=== PATIENT | female | born 1940 | race Caucasian/White ===

== ENCOUNTER 2022-02-03 11:30 | Outpatient (RCR) | payer OTHER, SELFPAY ==
[2022-01-20 14:14] VITALS: BP 145/78; PULSE 90; RESP 20; TEMP 36.4; BMI 25.9
[2022-01-20 14:31] VITALS: BMI 25.9
--- NOTE | 2022-01-20 14:35 | HP.PCM_ITS ---
History of Present Illness Date of Service: 01/20/22 Chief Complaint: Left lateral leg wound. History of Wound: Patient bumped her left lateral leg 3 weeks ago on the kneeler at [facility]. She has been placing antibiotic ointment on it. It was causing her so much pain that she ended up going to the ED for evaluation. She was started on Bactrim and clindamycin. She followed up with [place] [facility]. Her biggest concern is she had her left knee replaced 2 years ago. She does not want her knee replacement to get infected. Her wound care has been Santyl covered by Emi. We will stop the Santyl and place Emi covered with gauze. Use a double layer Tubigrip for compression. Today she denies any fever, nausea or vomiting. She states she has a good appetite. Progress of Wound: Left lateral leg ulcer with increased slough. Extremely tender to light palpation. [facility] Medical History (Updated 01/24/22 @ 16:27 by Annie Cervantes WOOD CARVING MACHINE OPERATOR, WOOD CARVING MACHINE OPERATOR-C) Hypothyroidism Surgical History (Updated 01/24/22 @ 16:27 by Annie Cervantes WOOD CARVING MACHINE OPERATOR, WOOD CARVING MACHINE OPERATOR-C) H/O hernia repair H/O: hysterectomy Social History Smoking Status: Never smoker ROS Constitutional Constitutional: Reports systems reviewed and no addt'l complaints, except as documented ENT HEENT: Reports systems reviewed and no addt'l complaints, except as documented Cardiovascular Cardiovascular: Reports none Respiratory/Chest Respiratory/Chest: Reports none Gastrointestinal Gastrointestinal: Reports none Musculoskeletal Musculoskeletal: Reports none Integumentary Integumentary: Reports as per HPI and wounds Psychiatric Psychiatric: Reports none Vital Signs Vital Signs Vital Signs: 01/20/22 14:14 Temperature 97.6 F L Temperature Source Temporal Pulse Rate 90 Respiratory Rate 20 H Blood Pressure 145/78 H Blood Pressure Mean 100 Blood Pressure Source Monitor Weight Weight: 165 lb 12.203 oz Body Mass Index (BMI) 25.9 Physical Exam Const alert, oriented x3 and no apparent distress General Appearance: cooperative HEENT normocephalic Eyes PERRL Resp normal respiratory effort and normal air movement Cardio regular rate, regular rhythm, S1 normal heart sound and S2 normal heart sound GI normal to inspection, nondistended, normoactive bowel sounds, soft to palpation and non-tender Extremity no clubbing, cyanosis or edema and no calf tenderness Peripheral Pulses: Yes pulses 2+ throughout Skin Skin Narrative: Left leg ulcer is very sensitive to light palpation. Is open with increased nonviable tissue. Neuro oriented x3 Psych mental status grossly normal Debridement Note Debridement Note Wound debrided: Leg wound Laterality: Left Type of Debridement: Excisional debridement Anesthesia Used: 4% Lidocaine Solution and - (1.5 cc of 1% lidocaine with epinephrine) Depth: Down to and including healthy tissue and in the subcutaneous layer Percentage of wound debrided: 100 Instrument Used: 5mm curette Tissue Removed: Subcutaneous tissue and slough Severity: Fat Layer Exposed Amount of bleeding with debridement: Mild Bleeding Controlled with: Pressure and Compression and gauze Patient tolerated procedure: Patient tolerated procedure well Debridement Free Text: Patient insisted on being injected with lidocaine before being evaluated and debrided. She did tolerate debridement well. Post-Debridement Measurements and Additional Note: Post-Debridement Measurements/Treatment - Nurse 1 - General Ulcer Assessment Start: 01/20/22 14:14 Freq: Status: Active Protocol: .SHAMAR Activity Type Activity Date Activity User E-Sign Co-Sign Detail Recorded Client Recorded Date Recorded By Document 01/20/22 14:14 DL [id number] 01/20/22 14:28 DL Document 01/20/22 14:31 BM [id number] 01/20/22 14:33 [facility] 01/20/22 01/20/22 14:14 14:31 - Today's Visit Information Type of service Initial Visit Arrival Mode Ambulatory Transfer Assistance None Patient Identification Verified (Name & Yes ) Patient Requires Transmission-Based No Precautions Height and Weight Height 5 ft 7 in Weight 165 lb 12.203 oz Weight in Pounds 165.8 lbs Body Mass Index (BMI) 25.9 25.9 BMI Classification Overweight Overweight BSA - Bijal 1.87 Vital Signs Temperature (97.8 F-99.1 F) 97.6 F L Temperature Source Temporal Pulse Rate (60-100) 90 Pulse Location Monitor Respiratory Rate (12-18) 20 H Respiratory rate source Observation Blood Pressure (90/60-120/80) 145/78 H Blood Pressure Mean 100 Source Monitor History Since Last Visit- (Skip if this is Patient's initial visit) Left Footwear Regular Shoe Right Footwear Regular Shoe Pain Scale: 0-10 Numeric Is Patient Pain Free? No Yes Ulcer -Description Throbbing -Intensity 4 -Alleviating Factors/Interventions Inactivity/ Resting Lower Extremity Assessment/ Foot Assessment/ Toe Nail Assessment Right -Posterior Tibial Palpable Yes -Posterior Tibial Doppler Multiphasic -Dorsalis Pedis Palpable Yes -Dorsalis Pedis Doppler Multiphasic -Extremity Color Pale -Hair Growth on Legs No -Hair Growth on Toes No -Temperature of Extremity Cool -Capillary Refill Less than 3 Seconds -Other Deformity No -Prior Foot Ulcer No -Charcot Joint No -Prior Amputation No -Thick No -Discolored No -Deformed No -Improper Length & Hygeine No Left -Posterior Tibial Palpable Yes -Posterior Tibial Doppler Multiphasic -Dorsalis Pedis Palpable Yes -Dorsalis Pedis Doppler Multiphasic -Extremity Color Pale -Hair Growth on Legs No -Hair Growth on Toes No -Temperature of Extremity Cool -Other Deformity No -Prior Foot Ulcer No -Charcot Joint No -Prior Amputation No -Thick No -Discolored No -Deformed No -Improper Length & Hygeine No Communication Assessment Preferred language [place] Able to Read Yes Able to Write Yes Right Hearing Abillity Normal Left Hearing Abillity Normal Visual Assistive Devices Glasses Teaching Assessment Preferences Verbal,Written, Demonstration Barriers to Learning None Readiness To Learn Good Willingness to Engage in Self Management Med Activies Readiness to Engage in Self Management Med Activities Anxiety Level Calm Cooperation Cooperative Perception Coherent Interest in Health Problem Asks Questions Education Importance Acknowledges Need Does Patient Smoke tobacco or other No substances Smoking Status Never smoker Is Patient Diabetic No Functional Assessment Recent Decline in Ability to Perform Denies Any Declines Culture/Confucianist/Public Administration Professor Cultural/Confucianist Needs that may affect No Treatment Plan Would you allow our hospital frame polisher to No meet you for the purpose of spiritual/ emotional support? Public Administration Professor to contact place of mandaeism No Teaching: Wound Center Dressing Your Wound -Person Taught Patient Discharge Instructions -Person Taught Patient Diagnostic Tests Ordered -Person Taught Patient *Welcome to the Wound Center -Person Taught Patient *Venous -Person Taught Patient WC - Nurse 1 - General Ulcer Measurement Start: 01/20/22 14:14 Freq: Status: Active Protocol: Activity Type Activity Date Activity User E-Sign Co-Sign Detail Recorded Client Recorded Date Recorded By Document 01/20/22 14:28 DL [id number] 01/20/22 14:29 DL 01/20/22 14:28 Wound Center Nurse 1 #1 L Lat LE -Current Size (cm) - Length 2 -Current Size (cm) - Width 1.4 -Current Size (cm) - Depth 0.1 -Total Square Cm 2.8 -Photo Taken Yes -Exudate Amt Medium -Exudate Type Serosanguineous -Wound Margin Distinct, Outline Attached -Granulation Amt Medium (34-66%) -Granulation Quality [place] -Necrosis Amt Medium (34-66%) -Necrotic Tissue Type Adherent Slough -Structure Exposed N/A -Texture (Janice-wound Skin Appearance) Scarring -Moisture (Janice-wound Skin Appearance) No Abnormality -Color (Janice-wound Skin Appearance) Hemosiderin Staining -Temperature (Janice-wound Skin No Abnormality Appearance) (Pt Warm) -Tenderness on Palpation (Janice-wound No Skin Appearance) -Ulcer Cleansing Soap and Water -Foul Odor after Cleansing No -Anesthetic Used 4% Lidocaine Solution Right Calf (cm) 34.5 Right Ankle (cm) 20.3 Left Calf (cm) 38.8 Left Ankle (cm) 20 Charges/Coding Visit Charges Office Visits / Consults: 33971 OV L3 New (25 modifier) Procedures Integumentary 111xxx-113xx: 75728 Latrice subq tissue 20 sq cm/< Assessment/Plan Assessment/Plan (1) Wound of left lower extremity: CODE(S): S81.802A - Unspecified open wound, left lower leg, initial encounter (2) Pain in wound: (3) History of total left knee replacement (TKR): CODE(S): Z96.652 - Presence of left artificial knee joint PLAN: Patient was seen and evaluated at the wound healing center today. She is experiencing quite a bit of pain with light palpation of her left leg wound. She was being seen at [facility]'s wound center. She had venous studies done. We will obtain the results of those. Will order arterial studies. Wound care - Stop the Santyl. Use moistened Emi covered with gauze daily. Will place a double layer tubigrip for compression. She is to complete the antibiotics of Bactrim that she was placed on. She completed the Clindamycin. Obtained a wound culture today. Depending on the results of the culture, it may necessitate the need to change her antibiotics. She is very active and wants to go to [facility]. Since she is having so much pain, I suggested she wait on kick boxing. It is ok to walk. She should avoid standing for long periods of time. Encouraged increase protein intake and increase Vitamin C intake to 1000mg/day to help with wound healing. Follow up in one week.
[2022-01-27 11:44] VITALS: BP 126/93; PULSE 89; RESP 20; TEMP 36.4; BMI 25.9
--- NOTE | 2022-01-27 13:19 | PN.PCM_ITS ---
History of Present Illness Date of Service: 01/27/22 Chief Complaint: Left lateral leg wound. History of Wound: Patient bumped her left lateral leg several weeks ago on the kneeler at [facility]. She has been placing antibiotic ointment on it. It was causing her so much pain that she ended up going to the ED for evaluation. She was started on Bactrim and clindamycin. She followed up with [place] [facility]. Her biggest concern is she had her left knee replaced 2 years ago. She does not want her knee replacement to get infected. Her wound care has been Santyl covered by Emi. We will stop the Santyl and place Emi covered with gauze. Use a double layer Tubigrip for compression. Wound care -Santyl nickel thickness covered with gauze daily. Wound culture from 01/20/2022 was negative for bacterial growth. Waiting for arterial studies. Today she denies any fever, nausea or vomiting. She states she has a good appetite. Progress of Wound: Left lateral leg wound with increased slough. Extremely painful to light palpation. Objective Data Objective Data Vital Signs: Vital Signs Temp Pulse Resp BP 97.5 F L 89 20 H 126/93 H 01/27/22 11:44 01/27/22 11:44 01/27/22 11:44 01/27/22 11:44 Weight: 165 lb 12.203 oz Body Mass Index (BMI) 25.9 Lab / Micro Data Micro: Microbiology 01/20/22 14:50 Wound - Leg, Left Gram Stain - Final 01/20/22 14:50 Wound - Leg, Left Wound Culture - Final No growth aerobically. 01/20/22 14:50 Wound - Leg, Left Anaerobic Culture - Final No growth in 5 days. Charges/Coding Procedures Integumentary 111xxx-113xx: 73638 Latrice subq tissue 20 sq cm/< Physical Exam Const alert and oriented x3 General Appearance: cooperative HEENT normocephalic Head and Scalp: atraumatic Resp normal respiratory effort Cardio regular rate Extremity normal capillary refill Extremity Narrative: +1 edema left lower leg Skin Wound Narrative: Left leg ulcer is very painful to palpation. There is nonviable tissue that is difficult to debride. Neuro CN's II-XII intact bilaterally Psych Appearance: grossly normal Debridement Note Debridement Note Wound debrided: Lateral leg wound Laterality: Left Type of Debridement: Excisional debridement Anesthesia Used: 5% Lidocaine Gel Depth: Down to and including healthy tissue and in the subcutaneous layer Percentage of wound debrided: 100 Instrument Used: 3mm curette Tissue Removed: Nonviable tissue and slough Severity: Fat Layer Exposed Amount of bleeding with debridement: Mild Bleeding Controlled with: Pressure Patient tolerated procedure: Patient tolerated procedure well Post-Debridement Measurements and Additional Note: Post-Debridement Measurements/Treatment WC - Nurse 1 - General Ulcer Assessment Start: 01/20/22 14:14 Freq: Status: Active Protocol: GER Activity Type Activity Date Activity User E-Sign Co-Sign Detail Recorded Client Recorded Date Recorded By Document 01/20/22 14:14 DL [id number] 01/20/22 14:28 DL Document 01/20/22 14:31 BM [id number] 01/20/22 14:33 BM Document 01/27/22 11:44 DL [id number] 01/27/22 11:47 DL 01/20/22 01/20/22 01/27/22 14:14 14:31 11:44 - Today's Visit Information Type of service Initial Visit Follow-up Visit (Physician/COOPERATIVE EXTENSION AGENT ) Arrival Mode Ambulatory Ambulatory Transfer Assistance None None Patient Identification Verified (Name & Yes Yes ) Patient Requires Transmission-Based No No Precautions Height and Weight Height 5 ft 7 in Weight 165 lb 12.203 oz Weight in Pounds 165.8 lbs Body Mass Index (BMI) 25.9 25.9 25.9 BMI Classification Overweight Overweight Overweight BSA - Bijal 1.87 Vital Signs Temperature (97.8 F-99.1 F) 97.6 F L 97.5 F L Temperature Source Temporal Temporal Pulse Rate (60-100) 90 89 Pulse Location Monitor Monitor Respiratory Rate (12-18) 20 H 20 H Respiratory rate source Observation Observation Blood Pressure (90/60-120/80) 145/78 H 126/93 H Blood Pressure Mean (mm Hg) 100 104 Source Monitor Monitor Have you changed medications since your No last visit? Any new allergies or adverse reactions No Had a fall/change in ADL's that may No increase risk of falls Signs or symptoms of abuse and/or No neglect since last visit Have you been in the hospital since your No last visit? Has dressing in place as prescribed Yes Has compression in place as prescribed Yes Has offloadiing in place as prescribed Yes Experienced any changes in pain level or No management History Since Last Visit- (Skip if this is Patient's initial visit) Left Footwear Regular Shoe Right Footwear Regular Shoe Pain Scale: 0-10 Numeric Is Patient Pain Free? No Yes Yes Ulcer -Description Throbbing -Intensity 4 -Alleviating Factors/Interventions Inactivity/ Resting Lower Extremity Assessment/ Foot Assessment/ Toe Nail Assessment Right -Posterior Tibial Palpable Yes -Posterior Tibial Doppler Multiphasic -Dorsalis Pedis Palpable Yes -Dorsalis Pedis Doppler Multiphasic -Extremity Color Pale -Hair Growth on Legs No -Hair Growth on Toes No -Temperature of Extremity Cool -Capillary Refill Less than 3 Seconds -Other Deformity No -Prior Foot Ulcer No -Charcot Joint No -Prior Amputation No -Thick No -Discolored No -Deformed No -Improper Length & Hygeine No Left -Posterior Tibial Palpable Yes -Posterior Tibial Doppler Multiphasic -Dorsalis Pedis Palpable Yes -Dorsalis Pedis Doppler Multiphasic -Extremity Color Pale -Hair Growth on Legs No -Hair Growth on Toes No -Temperature of Extremity Cool -Other Deformity No -Prior Foot Ulcer No -Charcot Joint No -Prior Amputation No -Thick No -Discolored No -Deformed No -Improper Length & Hygeine No Communication Assessment Preferred language Lao Able to Read Yes Able to Write Yes Right Hearing Abillity Normal Left Hearing Abillity Normal Visual Assistive Devices Glasses Teaching Assessment Preferences Verbal,Written, Demonstration Barriers to Learning None Readiness To Learn Good Willingness to Engage in Self Management Med Activies Readiness to Engage in Self Management Med Activities Anxiety Level Calm Cooperation Cooperative Perception Coherent Interest in Health Problem Asks Questions Education Importance Acknowledges Need Does Patient Smoke tobacco or other No substances Smoking Status Never smoker Is Patient Diabetic No Functional Assessment Recent Decline in Ability to Perform Denies Any Declines Culture/Yarsanism/Phone Representative Cultural/Yarsanism Needs that may affect No Treatment Plan Would you allow our hospital fire suppression captain to No meet you for the purpose of spiritual/ emotional support? Phone Representative to contact place of adventism No Teaching: Wound Center Dressing Your Wound -Person Taught Patient Discharge Instructions -Person Taught Patient Diagnostic Tests Ordered -Person Taught Patient *Welcome to the Wound Center -Person Taught Patient *Venous -Person Taught Patient WC - Nurse 1 - General Ulcer Measurement Start: 01/20/22 14:14 Freq: Status: Active Protocol: Activity Type Activity Date Activity User E-Sign Co-Sign Detail Recorded Client Recorded Date Recorded By Document 01/20/22 14:28 DL [id number] 01/20/22 14:29 DL Document 01/27/22 11:44 DL [id number] 01/27/22 11:47 DL 01/20/22 01/27/22 14:28 11:44 Wound Center Nurse 1 #1 L Lat LE -Current Size (cm) - Length 2 1.9 -Current Size (cm) - Width 1.4 1.3 -Current Size (cm) - Depth 0.1 0.2 -Total Square Cm 2.8 2.47 -Photo Taken Yes No -Exudate Amt Medium Medium -Exudate Type Serosanguineous Serosanguineous -Wound Margin Distinct, Distinct, Outline Outline Attached Attached -Granulation Amt Medium (34-66%) None Present (0 %) -Granulation Quality [place] -Necrosis Amt Medium (34-66%) Large (67-100%) -Necrotic Tissue Type Adherent Slough Adherent Slough -Structure Exposed N/A N/A -Texture (Janice-wound Skin Appearance) Scarring Scarring -Moisture (Janice-wound Skin Appearance) No Abnormality No Abnormality -Color (Janice-wound Skin Appearance) Hemosiderin Hemosiderin Staining Staining -Temperature (Janice-wound Skin No Abnormality No Abnormality Appearance) (Pt Warm) (Pt Warm) -Tenderness on Palpation (Janice-wound No No Skin Appearance) -Ulcer Cleansing Soap and Water Rinsed/ Irrigated with Saline -Foul Odor after Cleansing No No -Anesthetic Used 4% Lidocaine 4% Lidocaine Solution Solution,5% Lidocaine Gel Right Calf (cm) 34.5 Right Ankle (cm) 20.3 Left Calf (cm) 38.8 38.6 Left Ankle (cm) 20 21.4 WC - Nurse 2 - General Ulcer CM Notes Start: 01/20/22 14:14 Freq: Status: Active Protocol: Activity Type Activity Date Activity User E-Sign Co-Sign Detail Recorded Client Recorded Date Recorded By Document 01/20/22 15:49 PL [id number] 01/20/22 15:50 PL Document 01/27/22 11:54 [id number] 01/27/22 11:58 JF 01/20/22 01/27/22 15:49 11:54 Wound Center Nurse 2 #1 L Lat LE -Time 14:45 11:54 -Correct Patient Yes Yes -Correct Side, Site, Position Yes Yes -Correct Procedure Yes Yes -Procedure Performed Yes Yes -Type of Procedure Debridement Debridement -Clinical Debridement Subcutaneous Subcutaneous -Tissue Removed Subcutaneous Subcutaneous -Post Debridement (cm) - Length 1.8 2.0 -Post Debridement (cm) - Width 1.5 1.5 -Post Debridement (cm) - Depth 0.2 0.2 -Total Square (Post) (cm) 2.70 3.00 -Area of Debridement (cm) - Length 1.8 2.0 -Area of Debridement (cm) - Width 1.5 1.5 -Total Square (Area) (cm) 2.70 3.00 -Tunneling No No -Undermining/Tunneling No No -Circular Undermining No No -Wound/Ulcer Outcome Not Healed Not Healed -Ulcer Cleansing Rinsed/ Rinsed/ Irrigated with Irrigated with Saline Saline -Foul Odor after Cleansing No No -Bioengineered Tissue No No -Bleeding Controlled with Pressure Pressure -Treatment Response Procedure Procedure Tolerated Well Tolerated Well -Offloading No -Debridement - Subq, 1st 20sq cm Yes Yes Pain Scale: 0-10 Numeric Is Patient Pain Free? Yes Yes - Nurse 3 - General Ulcer D/C NN Start: 01/20/22 14:14 Freq: Status: Active Protocol: Activity Type Activity Date Activity User E-Sign Co-Sign Detail Recorded Client Recorded Date Recorded By Document 01/20/22 15:12 [id number] 01/20/22 15:14 DL Document 01/27/22 12:06 [id number] 01/27/22 12:06 01/20/22 01/27/22 15:12 12:06 Wound Care Nurse 3 #1 L Lat LE -Ulcer Cleansing Rinsed/ Wound Cleanser Irrigated with Saline -Foul Odor after Cleansing No No -Primary Dressing Applied Promogran Other Emi Matter -Other Dressing hydrogel -Primary Dressing Covered/Secured with Dry Gauze, Dry Gauze & Secured with Roll Gauze, Tape Secured with Tape -Promogran Emi Matter 1 Left -Tubular Bandage Double Layer Double Layer -Size of Tubigrip Used Size E Size D -Size D ($) 1 -Size E ($) 1 Treatment Response Procedure Procedure Tolerated Well Tolerated Well Pain Scale: 0-10 Numeric Is Patient Pain Free? Yes Yes WC - Visit Discharge Discharge Condition Stable Stable Ambulatory Status Ambulatory Ambulatory Transportation Private Auto Private Auto Assessment/Plan Assessment/Plan (1) Wound of left lower extremity: CODE(S): S81.802A - Unspecified open wound, left lower leg, initial encounter (2) Pain in wound: (3) History of total left knee replacement (TKR): CODE(S): Z96.652 - Presence of left artificial knee joint PLAN: Patient was seen and evaluated at the wound healing center today. She is experiencing quite a bit of pain with light palpation of her left leg wound. She was being seen at [facility]'s wound center. She had venous studies done. We will obtain the results of those. Wound care - Santyl nickel thickness covered with gauze daily. Will place a double layer tubigrip for compression. She is to complete the antibiotics of Bactrim that she was placed on. She completed the Clindamycin. Obtained a wound culture 01/20/2022 which was negative for bacterial growth. She should avoid standing for long periods of time. It is okay for her to walk for her activity, but may be she should avoid doing her kickboxing. Encouraged increase protein intake and increase Vitamin C intake to 1000mg/day to help with wound healing. Ordered arterial studies, waiting for them to be done. Follow up in one week.
--- NOTE | 2022-01-30 09:57 | WC ---
Patient called complaining of severe nerve pain to ulcer and has had to stop Santyl and has had difficulty of sleeping. She is very distressed of the pain she is experiencing and has started using neosporin burn ointment which took an hour to show improvement. Notified Annie Cervantes who will call in gabapentin to her pharmacy for nerve pain. Called patient to let her know and to restart santyl once pain is under better control. She verbalized understanding.
[2022-02-03 11:56] VITALS: BP 114/75; PULSE 74; TEMP 36.1; BMI 25.9
--- NOTE | 2022-02-03 12:33 | PN.PCM_ITS ---
History of Present Illness Date of Service: 02/03/22 Chief Complaint: Left lateral leg ulcer History of Wound: Patient bumped her left lateral leg several weeks ago on the kneeler at [facility]. She has been placing antibiotic ointment on it. It was causing her so much pain that she ended up going to the ED for evaluation. She was started on Bactrim and clindamycin. She followed up with [facility]. Her biggest concern is she had her left knee replaced 2 years ago. She does not want her knee replacement to get infected. Her wound care has been Santyl covered by Emi. We will stop the Emi and only use Santyl covered with gauze. Use a double layer Tubigrip for compression. Wound care -Santyl nickel thickness covered with gauze daily. Wound culture from 01/20/2022 was negative for bacterial growth. Waiting for arterial and venous studies. Today she denies any fever, nausea or vomiting. She states she has a good appetite. Progress of Wound: Left lateral leg ulcer continues to have slough. It is very painful. She is scheduled for her arterial study on 02/06/22 at [facility]. She phoned in last week after her appointment complaining of how bad her burning pain from her ulcer was. Prescribed Gabapentin to see if this would help with her burning nerve pain, but she would not take it because it may make her sleepy. Objective Data Objective Data Vital Signs: Vital Signs Temp Pulse Resp BP 97.0 F L 74 20 H 114/75 02/03/22 11:56 02/03/22 11:56 01/27/22 11:44 02/03/22 11:56 Weight: 165 lb 12.203 oz Body Mass Index (BMI) 25.9 Lab / Micro Data Micro: Microbiology 01/20/22 14:50 Wound - Leg, Left Gram Stain - Final 01/20/22 14:50 Wound - Leg, Left Wound Culture - Final No growth aerobically. 01/20/22 14:50 Wound - Leg, Left Anaerobic Culture - Final No growth in 5 days. Charges/Coding Procedures Integumentary 111xxx-113xx: [id number] Latrice subq tissue 20 sq cm/< Physical Exam Const alert and oriented x3 General Appearance: cooperative HEENT normocephalic Head and Scalp: atraumatic Resp normal respiratory effort Cardio regular rate GI non-tender Palpation: soft Extremity normal capillary refill Skin Wound Narrative: Left leg ulcer continues to have fibrous tissue in the wound bed. It is very painful to palpation and to debride. There is bleeding around the edges after debridement. Neuro CN's II-XII intact bilaterally Psych Appearance: grossly normal Debridement Note Debridement Note Wound debrided: Leg ulcer Laterality: Left Type of Debridement: Excisional debridement Anesthesia Used: 4% Lidocaine Solution and 5% Lidocaine Gel Depth: Down to and including healthy tissue and in the subcutaneous layer Percentage of wound debrided: 100 Instrument Used: 3mm curette Tissue Removed: Subcutaneous tissue and slough Severity: Fat Layer Exposed Amount of bleeding with debridement: Mild Bleeding Controlled with: Pressure Patient tolerated procedure: Patient tolerated procedure well (Patient tolerated the debridement well, but it was very painful for her) Post-Debridement Measurements and Additional Note: Post-Debridement Measurements/Treatment - Nurse 1 - General Ulcer Assessment Start: 01/20/22 14:14 Freq: Status: Active Protocol: .SHAMAR Activity Type Activity Date Activity User E-Sign Co-Sign Detail Recorded Client Recorded Date Recorded By Document 01/20/22 14:14 DL [id number] 01/20/22 14:28 DL Document 01/20/22 14:31 [facility] [id number] 01/20/22 14:33 [facility] Document 01/27/22 11:44 DL [id number] 01/27/22 11:47 DL Document 02/03/22 11:56 KR [id number] 02/03/22 11:57 KR 01/20/22 01/20/22 01/27/22 14:14 14:31 11:44 - Today's Visit Information Type of service Initial Visit Follow-up Visit (Physician/[employer]SI[employer] GENER[employer] MANAGER ) Arrival Mode Ambulatory Ambulatory Transfer Assistance None None Patient Identification Verified (Name & Yes Yes ) Patient Requires Transmission-Based No No Precautions Height and Weight Height 5 ft 7 in Weight 165 lb 12.203 oz Weight in Pounds 165.8 lbs Body Mass Index (BMI) 25.9 25.9 25.9 BMI Classification Overweight Overweight Overweight BSA - [place]ijal 1.87 Vital Signs Temperature (97.8 F-99.1 F) 97.6 F L 97.5 F L Temperature Source Temporal Temporal Pulse Rate (60-100) 90 89 Pulse Location Monitor Monitor Respiratory Rate (12-18) 20 H 20 H Respiratory rate source Observation Observation Blood Pressure (90/60-120/80) 145/78 H 126/93 H Blood Pressure Mean (mm Hg) 100 104 Source Monitor Monitor Position Have you changed medications since your No last visit? Any new allergies or adverse reactions No Had a fall/change in ADL's that may No increase risk of falls Signs or symptoms of abuse and/or No neglect since last visit Have you been in the hospital since your No last visit? Has dressing in place as prescribed Yes Has compression in place as prescribed Yes Has offloadiing in place as prescribed Yes Experienced any changes in pain level or No management History Since Last Visit- (Skip if this is Patient's initial visit) Left Footwear Regular Shoe Right Footwear Regular Shoe Pain Scale: 0-10 Numeric Is Patient Pain Free? No Yes Yes Ulcer -Description Throbbing -Intensity 4 -Alleviating Factors/Interventions Inactivity/ Resting Lower Extremity Assessment/ Foot Assessment/ Toe Nail Assessment Right -Posterior Tibial Palpable Yes -Posterior Tibial Doppler Multiphasic -Dorsalis Pedis Palpable Yes -Dorsalis Pedis Doppler Multiphasic -Extremity Color Pale -Hair Growth on Legs No -Hair Growth on Toes No -Temperature of Extremity Cool -Capillary Refill Less than 3 Seconds -Other Deformity No -Prior Foot Ulcer No -Charcot Joint No -Prior Amputation No -Thick No -Discolored No -Deformed No -Improper Length & Hygeine No Left -Posterior Tibial Palpable Yes -Posterior Tibial Doppler Multiphasic -Dorsalis Pedis Palpable Yes -Dorsalis Pedis Doppler Multiphasic -Extremity Color Pale -Hair Growth on Legs No -Hair Growth on Toes No -Temperature of Extremity Cool -Other Deformity No -Prior Foot Ulcer No -Charcot Joint No -Prior Amputation No -Thick No -Discolored No -Deformed No -Improper Length & Hygeine No Communication Assessment Preferred language Albanian Able to Read Yes Able to Write Yes Right Hearing Abillity Normal Left Hearing Abillity Normal Visual Assistive Devices Glasses Teaching Assessment Preferences Verbal,Written, Demonstration Barriers to Learning None Readiness To Learn Good Willingness to Engage in Self Management Med Activies Readiness to Engage in Self Management Med Activities Anxiety Level Calm Cooperation Cooperative Perception Coherent Interest in Health Problem Asks Questions Education Importance Acknowledges Need Does Patient Smoke tobacco or other No substances Smoking Status Never smoker Is Patient Diabetic No Functional Assessment Recent Decline in Ability to Perform Denies Any Declines Culture/Hindu/Beverage Distiller Cultural/Hindu Needs that may affect No Treatment Plan Would you allow our hospital airflight attendants supervisor to No meet you for the purpose of spiritual/ emotional support? Beverage Distiller to contact place of episcopalian No Teaching: Wound Center Dressing Your Wound -Person Taught Patient Discharge Instructions -Person Taught Patient Diagnostic Tests Ordered -Person Taught Patient *Welcome to the Wound Center -Person Taught Patient *Venous -Person Taught Patient 02/03/22 11:56 WC - Today's Visit Information Type of service Follow-up Visit (Physician/[employer]SISTANT [employer]ANT GENERAL MANAGER ) Arrival Mode Ambulatory Transfer Assistance Patient Identification Verified (Name & Yes ) Patient Requires Transmission-Based Precautions Height and Weight Height Weight Weight in Pounds Body Mass Index (BMI) 25.9 BMI Classification Overweight [facility] - [place] Vital Signs Temperature (97.8 F-99.1 F) 97.0 F L Temperature Source Temporal Pulse Rate (60-100) 74 Pulse Location Monitor Respiratory Rate (12-18) Respiratory rate source Blood Pressure (90/60-120/80) 114/75 Blood Pressure Mean (mm Hg) 88 Source Monitor Position Sitting Have you changed medications since your No last visit? Any new allergies or adverse reactions No Had a fall/change in ADL's that may No increase risk of falls Signs or symptoms of abuse and/or No neglect since last visit Have you been in the hospital since your No last visit? Has dressing in place as prescribed Yes Has compression in place as prescribed Yes Has offloadiing in place as prescribed N/A Experienced any changes in pain level or No management History Since Last Visit- (Skip if this is Patient's initial visit) Left Footwear Regular Shoe Right Footwear Regular Shoe Pain Scale: 0-10 Numeric Is Patient Pain Free? Yes Ulcer -Description -Intensity -Alleviating Factors/Interventions Lower Extremity Assessment/ Foot Assessment/ Toe Nail Assessment Right -Posterior Tibial Palpable -Posterior Tibial Doppler -Dorsalis Pedis Palpable -Dorsalis Pedis Doppler -Extremity Color -Hair Growth on Legs -Hair Growth on Toes -Temperature of Extremity -Capillary Refill -Other Deformity -Prior Foot Ulcer -Charcot Joint -Prior Amputation -Thick -Discolored -Deformed -Improper Length & Hygeine Left -Posterior Tibial Palpable -Posterior Tibial Doppler -Dorsalis Pedis Palpable -Dorsalis Pedis Doppler -Extremity Color -Hair Growth on Legs -Hair Growth on Toes -Temperature of Extremity -Other Deformity -Prior Foot Ulcer -Charcot Joint -Prior Amputation -Thick -Discolored -Deformed -Improper Length & Hygeine Communication Assessment Preferred language Able to Read Able to Write Right Hearing Abillity Left Hearing Abillity Visual Assistive Devices Teaching Assessment Preferences Barriers to Learning Readiness To Learn Willingness to Engage in Self Management Activies Readiness to Engage in Self Management Activities Anxiety Level Cooperation Perception Interest in Health Problem Education Importance Does Patient Smoke tobacco or other substances Smoking Status Is Patient Diabetic Functional Assessment Recent Decline in Ability to Perform Culture/Hindu/Beverage Distiller Cultural/Hindu Needs that may affect Treatment Plan Would you allow our hospital airflight attendants supervisor to meet you for the purpose of spiritual/ emotional support? Beverage Distiller to contact place of episcopalian Teaching: Wound Center Dressing Your Wound -Person Taught Discharge Instructions -Person Taught Diagnostic Tests Ordered -Person Taught *Welcome to the Wound Center -Person Taught *Venous -Person Taught WC - Nurse 1 - General Ulcer Measurement Start: 01/20/22 14:14 Freq: Status: Active Protocol: Activity Type Activity Date Activity User E-Sign Co-Sign Detail Recorded Client Recorded Date Recorded By Document 01/20/22 14:28 DL [id number] 01/20/22 14:29 DL Document 01/27/22 11:44 DL [id number] 01/27/22 11:47 DL Document 02/03/22 11:56 [id number] 02/03/22 11:57 KR 01/20/22 01/27/22 02/03/22 14:28 11:44 11:56 Wound Center Nurse 1 #1 L Lat LE -Current Size (cm) - Length 2 1.9 1.6 -Current Size (cm) - Width 1.4 1.3 1.5 -Current Size (cm) - Depth 0.1 0.2 0.2 -Total Square Cm 2.8 2.47 2.40 -Photo Taken Yes No -Exudate Amt Medium Medium Medium -Exudate Type Serosanguineous Serosanguineous Yellow/Green -Wound Margin Distinct, Distinct, Distinct, Outline Outline Outline Attached Attached Attached -Granulation Amt Medium (34-66%) None Present (0 %) -Granulation Quality [place] -Necrosis Amt Medium (34-66%) Large (67-100%) Large (67-100%) -Necrotic Tissue Type Adherent Slough Adherent Slough Adherent Slough -Structure Exposed N/A N/A -Texture (Janice-wound Skin Appearance) Scarring Scarring No Abnormality, Assessed -Moisture (Janice-wound Skin Appearance) No Abnormality No Abnormality No Abnormality, Assessed -Color (Janice-wound Skin Appearance) Hemosiderin Hemosiderin No Abnormality, Staining Staining Assessed -Temperature (Janice-wound Skin No Abnormality No Abnormality No Abnormality Appearance) (Pt Warm) (Pt Warm) (Pt Warm) -Tenderness on Palpation (Janice-wound No No No Skin Appearance) -Ulcer Cleansing Soap and Water Rinsed/ Rinsed/ Irrigated with Irrigated with Saline Saline -Foul Odor after Cleansing No No No -Anesthetic Used 4% Lidocaine 4% Lidocaine 4% Lidocaine Solution Solution,5% Solution,5% Lidocaine Gel Lidocaine Gel Right Calf (cm) 34.5 Right Ankle (cm) 20.3 Left Calf (cm) 38.8 38.6 Left Ankle (cm) 20 21.4 WC - Nurse 2 - General Ulcer CM Notes Start: 01/20/22 14:14 Freq: Status: Active Protocol: Activity Type Activity Date Activity User E-Sign Co-Sign Detail Recorded Client Recorded Date Recorded By Document 01/20/22 15:49 PL [id number] 01/20/22 15:50 PL Document 01/27/22 11:54 [id number] 01/27/22 11:58 Document 02/03/22 12:01 [id number] 02/03/22 12:03 01/20/22 01/27/22 02/03/22 15:49 11:54 12:01 Wound Center Nurse 2 #1 L Lat LE -Time 14:45 11:54 12:02 -Correct Patient Yes Yes Yes -Correct Side, Site, Position Yes Yes Yes -Correct Procedure Yes Yes Yes -Procedure Performed Yes Yes Yes -Type of Procedure Debridement Debridement Debridement -Clinical Debridement Subcutaneous Subcutaneous Subcutaneous -Tissue Removed Subcutaneous Subcutaneous Subcutaneous -Post Debridement (cm) - Length 1.8 2.0 1.8 -Post Debridement (cm) - Width 1.5 1.5 1.9 -Post Debridement (cm) - Depth 0.2 0.2 0.2 -Total Square (Post) (cm) 2.70 3.00 3.42 -Area of Debridement (cm) - Length 1.8 2.0 1.8 -Area of Debridement (cm) - Width 1.5 1.5 1.9 -Total Square (Area) (cm) 2.70 3.00 3.42 -Tunneling No No No -Undermining/Tunneling No No No -Circular Undermining No No No -Wound/Ulcer Outcome Not Healed Not Healed Not Healed -Ulcer Cleansing Rinsed/ Rinsed/ Rinsed/ Irrigated with Irrigated with Irrigated with Saline Saline Saline -Foul Odor after Cleansing No No No -Bioengineered Tissue No No No -Bleeding Controlled with Pressure Pressure Pressure -Treatment Response Procedure Procedure Procedure Tolerated Well Tolerated Well Tolerated Well -Offloading No No -Debridement - Subq, 1st 20sq cm Yes Yes Yes Pain Scale: 0-10 Numeric Is Patient Pain Free? Yes Yes Yes WC - Nurse 3 - General Ulcer D/C NN Start: 01/20/22 14:14 Freq: Status: Active Protocol: Activity Type Activity Date Activity User E-Sign Co-Sign Detail Recorded Client Recorded Date Recorded By Document 01/20/22 15:12 DL [id number] 01/20/22 15:14 DL Document 01/27/22 12:06 [id number] 01/27/22 12:06 JF Document 02/03/22 12:10 KR [id number] 02/03/22 12:10 KR 01/20/22 01/27/22 02/03/22 15:12 12:06 12:10 Wound Care Nurse 3 #1 L Lat LE -Ulcer Cleansing Rinsed/ Wound Cleanser Rinsed/ Irrigated with Irrigated with Saline Saline -Foul Odor after Cleansing No No -Primary Dressing Applied Promogran Other C Hydrogel ($) Emi Matter -Other Dressing hydrogel -Primary Dressing Covered/Secured with Dry Gauze, Dry Gauze & Dry Gauze,Dry Secured with Roll Gauze, Gauze & Roll Tape Secured with Gauze,Secured Tape with Tape -Promogran Emi Matter 1 Left -Tubular Bandage Double Layer Double Layer Double Layer -Size of Tubigrip Used Size E Size D Size D -Size D ($) 1 2 -Size E ($) 1 Treatment Response Procedure Procedure Tolerated Well Tolerated Well Pain Scale: 0-10 Numeric Is Patient Pain Free? Yes Yes Yes WC - Visit Discharge Discharge Condition Stable Stable Stable Ambulatory Status Ambulatory Ambulatory Ambulatory Transportation Private Auto Private Auto Private Auto Assessment/Plan Assessment/Plan (1) Ulcer of left lower extremity with fat layer exposed: CODE(S): L97.922 - Non-pressure chronic ulcer of unspecified part of left lower leg with fat layer exposed (2) Nerve pain: CODE(S): M79.2 - Neuralgia and neuritis, unspecified (3) Pain in wound: (4) History of total left knee replacement (TKR): CODE(S): Z96.652 - Presence of left artificial knee joint PLAN: Patient was seen and evaluated at the wound healing center today. She is experiencing quite a bit of pain with light palpation of her left leg wound. She was being seen at [facility]'s wound center. She had venous studies done, but it seems to only rule out DVT. Awaiting Arterial and venous studies. Patient wants these to be done at [facility] because it is closer to where she lives. Wound care - Santyl nickel thickness covered with gauze daily. Will place a double layer tubigrip for compression. She is to complete the antibiotics of Bactrim that she was placed on. She completed the Clindamycin. Obtained a wound culture 01/20/2022 which was negative for bacterial growth. She should avoid standing for long periods of time. It is okay for her to walk for her activity, but may be she should avoid doing her kickboxing. Encouraged increase protein intake and increase Vitamin C intake to 1000mg/day to help with wound healing. Follow up in one week.
== END 2022-02-06 23:59 | disposition home or self-care (01) ==
LOC: WC 11:30
PROVIDERS: Visit Provider Nurse Practitioner Family
DX: L97.922 Non-pressure chronic ulcer of unspecified part of left lower leg with fat layer exposed (principal); Z96.652 Presence of left artificial knee joint; E03.9 Hypothyroidism, unspecified; M79.2 Neuralgia and neuritis, unspecified
CPT/HCPCS: 11042; 87070; 87075; 87205; 99213; G0463

== ENCOUNTER 2022-03-06 11:30 | Outpatient (RCR) | payer OTHER, SELFPAY ==
[2022-02-07 00:49] VITALS: BP 114/75; PULSE 74; RESP 20; TEMP 36.1; BMI 25.9
[2022-02-10 10:06] VITALS: BP 151/74; PULSE 84; RESP 16; TEMP 36.1; BMI 25.9
--- NOTE | 2022-02-10 12:18 | PN.PCM_ITS ---
History of Present Illness Date of Service: 02/10/22 Chief Complaint: Non healing left lateral leg ulcer History of Wound: Patient bumped her left lateral leg in December on the kneeler at [facility]. She has been placing antibiotic ointment on it. It was causing her so much pain that she ended up going to the ED for evaluation. She was started on Bactrim and clindamycin. She followed up with [facility]. Her biggest concern is she had her left knee replaced 2 years ago. She does not want her knee replacement to get infected. Her wound care has been Santyl covered by Emi. We will stop the Emi and only use Santyl, covered with gauze. Use a double layer Tubigrip for compression. Wound care -Santyl nickel thickness covered with gauze daily. Wound culture from 01/20/2022 was negative for bacterial growth. Arterial studies done at [facility] on 02/07/22, Right MARILY = 1.53, artificially elevated. Left MARILY 1.37, normal. PVR waveforms of bilateral legs normal at rest. Waiting for venous studies. Today she denies any fever, nausea or vomiting. She states she has a good appetite. Progress of Wound: Left lateral leg ulcer is slightly smaller. She states that it is still painful. Objective Data Objective Data Vital Signs: Vital Signs Temp Pulse Resp BP 96.9 F L 84 16 151/74 H 02/10/22 10:06 02/10/22 10:06 02/10/22 10:06 02/10/22 10:06 Oxygen Delivery Method Room Air Weight: 165 lb 12.203 oz Body Mass Index (BMI) 25.9 Charges/Coding Procedures Integumentary 111xxx-113xx: 25169 Latrice subq tissue 20 sq cm/< Physical Exam Const alert and oriented x3 HEENT normocephalic Resp normal respiratory effort Cardio regular rate Extremity General Extremity: edema left lower extremity trace Skin Wound Narrative: Left lower leg ulcer is slightly smaller than her last visit. There continues to increased fribrous slough in the wound bed. It is still very painful to palpation. It does bleed better this week with debridement. There is no obvious signs of infection. Neuro CN's II-XII intact bilaterally Psych Appearance: grossly normal Debridement Note Debridement Note Wound debrided: lateral lower leg ulcer Laterality: Left Type of Debridement: Excisional debridement Anesthesia Used: 5% Lidocaine Gel Depth: Down to and including healthy tissue and in the subcutaneous layer Percentage of wound debrided: 100 Instrument Used: 5mm curette Tissue Removed: Nonviable tissue and slough Severity: Fat Layer Exposed Amount of bleeding with debridement: Mild Bleeding Controlled with: Compression and gauze Patient tolerated procedure: Patient tolerated procedure well Post-Debridement Measurements and Additional Note: Post-Debridement Measurements/Treatment RICHIE Blevins Nurse 1 - General Ulcer Assessment Start: 02/10/22 10:06 Freq: Status: Active Protocol: GER Activity Type Activity Date Activity User E-Sign Co-Sign Detail Recorded Client Recorded Date Recorded By Document 02/10/22 10:06 AKASH [id number] 02/10/22 10:15 AKASH 02/10/22 10:06 RICHIE Blevins Today's Visit Information Type of service Follow-up Visit (Physician/UNDERGROUND UTILITY LOCATOR ) Arrival Mode Ambulatory Transfer Assistance None Patient Identification Verified (Name & Yes ) Patient Requires Transmission-Based No Precautions Height and Weight Body Mass Index (BMI) 25.9 BMI Classification Overweight Vital Signs Temperature (97.8 F-99.1 F) 96.9 F L Temperature Source Temporal Pulse Rate (60-100) 84 Pulse Location Monitor Respiratory Rate (12-18) 16 Respiratory rate source Observation Oxygen Delivery Method Room Air Blood Pressure (90/60-120/80) 151/74 H Blood Pressure Mean (mm Hg) 99 Source Monitor Position Sitting History Since Last Visit- (Skip if this is Patient's initial visit) Have you changed medications since your No last visit? Any new allergies or adverse reactions No Had a fall/change in ADL's that may No increase risk of falls Signs or symptoms of abuse and/or No neglect since last visit Have you been in the hospital since your No last visit? Has dressing in place as prescribed Yes Has compression in place as prescribed Yes Has offloadiing in place as prescribed N/A Experienced any changes in pain level or No management Left Footwear Regular Shoe Right Footwear Regular Shoe Pain Scale: 0-10 Numeric Is Patient Pain Free? Yes RICHIE Blevins Nurse 1 - General Ulcer Measurement Start: 02/10/22 10:06 Freq: Status: Active Protocol: Activity Type Activity Date Activity User E-Sign Co-Sign Detail Recorded Client Recorded Date Recorded By Document 02/10/22 10:06 AKASH [id number] 02/10/22 10:15 AKASH 02/10/22 10:06 Wound Center Nurse 1 #1 L Lat LE -Combined with other wound No -Current Size (cm) - Length 1.8 -Current Size (cm) - Width 1.5 -Current Size (cm) - Depth 0.3 -Total Square Cm 2.70 -Date of Last Picture (Recall this 02/10/22 field) -Photo Taken Yes -Epithelialization None Present -Tunneling No -Undermining/Tunneling No -Circular Undermining No -Exudate Amt Medium -Exudate Type Serosanguineous -Wound Margin Distinct, Outline Attached -Granulation Amt None Present (0 %) -Slough/Fibrin Yes -Necrosis Amt Large (67-100%) -Necrotic Tissue Type Adherent Slough -Texture (Janice-wound Skin Appearance) Assessed, Scarring -Moisture (Janice-wound Skin Appearance) Assessed -Color (Janice-wound Skin Appearance) Assessed, Hemosiderin Staining -Temperature (Janice-wound Skin No Abnormality Appearance) (Pt Warm) -Tenderness on Palpation (Janice-wound No Skin Appearance) -Ulcer Cleansing Rinsed/ Irrigated with Saline -Foul Odor after Cleansing No -Anesthetic Used 5% Lidocaine Gel Lower Limb Edema Present Yes Point of Measurement (cm from the distal 38.6 point) Point of measurement (cm from the medial 20 instep) WC - Nurse 2 - General Ulcer CM Notes Start: 02/10/22 10:06 Freq: Status: Active Protocol: Activity Type Activity Date Activity User E-Sign Co-Sign Detail Recorded Client Recorded Date Recorded By Document 02/10/22 10:32 [id number] 02/10/22 10:35 02/10/22 10:32 Wound Center Nurse 2 #1 L Lat LE -Time 10:32 -Correct Patient Yes -Correct Side, Site, Position Yes -Correct Procedure Yes -Procedure Performed Yes -Type of Procedure Debridement -Clinical Debridement Subcutaneous -Tissue Removed Subcutaneous -Post Debridement (cm) - Length 1.8 -Post Debridement (cm) - Width 1.5 -Post Debridement (cm) - Depth 0.2 -Total Square (Post) (cm) 2.70 -Area of Debridement (cm) - Length 1.8 -Area of Debridement (cm) - Width 1.5 -Total Square (Area) (cm) 2.70 -Tunneling No -Undermining/Tunneling No -Circular Undermining No -Wound/Ulcer Outcome Not Healed -Ulcer Cleansing Rinsed/ Irrigated with Saline -Foul Odor after Cleansing No -Bioengineered Tissue No -Bleeding Controlled with Pressure -Treatment Response Procedure Tolerated Well -Offloading No -Debridement - Subq, 1st 20sq cm Yes Pain Scale: 0-10 Numeric Is Patient Pain Free? Yes - Nurse 3 - General Ulcer D/C NN Start: 02/10/22 10:06 Freq: Status: Active Protocol: Activity Type Activity Date Activity User E-Sign Co-Sign Detail Recorded Client Recorded Date Recorded By Document 02/10/22 10:42 AKASH [id number] 02/10/22 10:43 AKASH 02/10/22 10:42 Wound Care Nurse 3 #1 L Lat LE -Ulcer Cleansing Soap and Water -Foul Odor after Cleansing No -Other Dressing Santyl -Primary Dressing Covered/Secured with Dry Gauze, Secured with Tape -Other Covering Tubigrip D Treatment Response Procedure Tolerated Well Pain Scale: 0-10 Numeric Is Patient Pain Free? Yes - Visit Discharge Discharge Condition Stable Ambulatory Status Ambulatory Transportation Private Auto Assessment/Plan Assessment/Plan (1) Ulcer of left lower extremity with fat layer exposed: CODE(S): L97.922 - Non-pressure chronic ulcer of unspecified part of left lower leg with fat layer exposed (2) Nerve pain: CODE(S): M79.2 - Neuralgia and neuritis, unspecified (3) Pain in wound: (4) History of total left knee replacement (TKR): CODE(S): Z96.652 - Presence of left artificial knee joint PLAN: Patient was seen and evaluated at the wound healing center today. She is experiencing quite a bit of discomfort with palpation and debridement. Arterial studies done at [facility] on 02/07/22, Right MARILY = 1.53, artificially elevated. Left MARILY 1.37, normal. PVR waveforms of bilateral legs normal at rest. Awaiting venous studies on Thursday. Patient wants these to be done at [facility] because it is closer to where she lives. Wound care - Santyl nickel thickness covered with gauze daily. Will place a double layer tubigrip for compression. She is to completed the antibiotics of Bactrim and the Clindamycin. Obtained a wound culture 01/20/2022 which was negative for bacterial growth. She should avoid standing for long periods of time. It is okay for her to walk for her activity, but may be she should avoid doing her kickboxing. Encouraged increase protein intake and increase Vitamin C intake to 1000mg/day to help with wound healing. Patient verbalizes frustration that she is not healed. Reinforced that her w ound is smaller, await venous studies before changing compression. Follow up in one week.
[2022-02-17 11:15] VITALS: BP 145/70; PULSE 80; TEMP 36.2; BMI 25.9
--- NOTE | 2022-02-17 11:45 | PN.PCM_ITS ---
History of Present Illness Date of Service: 02/17/22 Chief Complaint: Non healing left lateral leg ulcer History of Wound: Patient bumped her left lateral leg in December on the kneeler at [facility]. She has been placing antibiotic ointment on it. It was causing her so much pain that she ended up going to the ED for evaluation. She was started on Bactrim and clindamycin. She followed up with [facility]. She has now come to our wound center because her granddaughter works here. Her b iggest concern is she had her left knee replaced 2 years ago. She does not want her knee replacement to get infected. Her wound care has been Santyl covered by Emi. We will stop the Emi and only use Santyl, covered with gauze. Use a double layer Tubigrip for compression. Wound care -Santyl nickel thickness covered with gauze daily. Wound culture from 01/20/2022 was negative for bacterial growth. She had just completed an antibiotic from the ED before this culture. Arterial studies done at [facility] on 02/07/22, Right MARILY = 1.53, artificially elevated. Left MARILY 1.37, normal. PVR waveforms of bilateral legs normal at rest. Waiting for venous studies. They were supposed to be completed last week and she missed her appointment. They have been rescheduled for tomorrow. She has decided to see a plastic surgeon to see if they can skin graft this ulcer. I had suggested waiting until all her vascular studies are completed. Today she denies any fever, nausea or vomiting. She states she has a good appetite. Progress of Wound: Left lateral leg ulcer is stable. She states that it is still painful. Objective Data Objective Data Vital Signs: Vital Signs Temp Pulse Resp BP 97.2 F L 80 16 145/70 H 02/17/22 11:15 02/17/22 11:15 02/10/22 10:06 02/17/22 11:15 Oxygen Delivery Method Room Air Weight: 165 lb 12.203 oz Body Mass Index (BMI) 25.9 Charges/Coding Visit Charges Office Visits / Consults: 95647 OV L3 Est Physical Exam Const alert and oriented x3 HEENT normocephalic Resp normal respiratory effort Cardio regular rate Extremity normal capillary refill Extremity Narrative: Left lower leg with +1 edema Skin Wound Narrative: Left lateral leg ulcer is extremely pain to light touch. There continues to be increased non viable tissue in the base of the ulcer. Ulcer is stable. Neuro CN's II-XII intact bilaterally Psych Appearance: well kempt Debridement Note Debridement Note No debridement was completed: No debridement was completed today (Patient declined debridement today. Suggested that we try the Misonix aquadebrider because that tends to be less uncomfortable but she states she is on an holiday this week.) Post-Debridement Measurements and Additional Note: Post-Debridement Measurements/Treatment - Nurse 1 - General Ulcer Assessment Start: 02/10/22 10:06 Freq: Status: Active Protocol: EGR Activity Type Activity Date Activity User E-Sign Co-Sign Detail Recorded Client Recorded Date Recorded By Document 02/10/22 10:06 AKASH [id number] 02/10/22 10:15 AKASH Document 02/17/22 11:15 AK [id number] 02/17/22 11:17 AK 02/10/22 02/17/22 10:06 11:15 - Today's Visit Information Type of service Follow-up Visit Follow-up Visit (Physician/DIP GUIDER STOVES (Physician/DIP GUIDER STOVES ) ) Arrival Mode Ambulatory Ambulatory Transfer Assistance None Patient Identification Verified (Name & Yes Yes ) Patient Requires Transmission-Based No No Precautions Safety Precautions NA Height and Weight Body Mass Index (BMI) 25.9 25.9 BMI Classification Overweight Overweight Vital Signs Temperature (97.8 F-99.1 F) 96.9 F L 97.2 F L Temperature Source Temporal Temporal Pulse Rate (60-100) 84 80 Pulse Location Monitor Monitor Respiratory Rate (12-18) 16 Respiratory rate source Observation Oxygen Delivery Method Room Air Blood Pressure (90/60-120/80) 151/74 H 145/70 H Blood Pressure Mean (mm Hg) 99 95 Source Monitor Monitor Position Sitting History Since Last Visit- (Skip if this is Patient's initial visit) Have you changed medications since your No No last visit? Any new allergies or adverse reactions No No Had a fall/change in ADL's that may No No increase risk of falls Signs or symptoms of abuse and/or No No neglect since last visit Have you been in the hospital since your No No last visit? Has dressing in place as prescribed Yes Yes Has compression in place as prescribed Yes Yes Has offloadiing in place as prescribed N/A N/A Experienced any changes in pain level or No No management Left Footwear Regular Shoe Regular Shoe Right Footwear Regular Shoe Regular Shoe Pain Scale: 0-10 Numeric Is Patient Pain Free? Yes Yes WC - Nurse 1 - General Ulcer Measurement Start: 02/10/22 10:06 Freq: Status: Active Protocol: Activity Type Activity Date Activity User E-Sign Co-Sign Detail Recorded Client Recorded Date Recorded By Document 02/10/22 10:06 AKASH [id number] 02/10/22 10:15 JF Document 02/17/22 11:15 AK [id number] 02/17/22 11:17 AK 02/10/22 02/17/22 10:06 11:15 Wound Center Nurse 1 #1 L Lat LE -Combined with other wound No No -Current Size (cm) - Length 1.8 1.5 -Current Size (cm) - Width 1.5 1.3 -Current Size (cm) - Depth 0.3 0.2 -Total Square Cm 2.70 1.95 -Date of Last Picture (Recall this 02/10/22 field) -Photo Taken Yes No -Epithelialization None Present None Present -Tunneling No No -Undermining/Tunneling No No -Circular Undermining No No -Change in Wound Grade/Stage No -Exudate Amt Medium Medium -Exudate Type Serosanguineous Serosanguineous -Wound Margin Distinct, Distinct, Outline Outline Attached Attached -Granulation Amt None Present (0 None Present (0 %) %) -Granulation Quality N/A -Slough/Fibrin Yes Yes -Necrosis Amt Large (67-100%) Medium (34-66%) -Necrotic Tissue Type Adherent Slough Adherent Slough -Structure Exposed N/A -Texture (Janice-wound Skin Appearance) Assessed, No Abnormality, Scarring Assessed, Scarring -Moisture (Janice-wound Skin Appearance) Assessed No Abnormality, Assessed -Color (Janice-wound Skin Appearance) Assessed, Assessed, Hemosiderin Hemosiderin Staining Staining -Temperature (Janice-wound Skin No Abnormality No Abnormality Appearance) (Pt Warm) (Pt Warm) -Tenderness on Palpation (Janice-wound No Yes Skin Appearance) -Ulcer Cleansing Rinsed/ Rinsed/ Irrigated with Irrigated with Saline Saline -Foul Odor after Cleansing No No -Anesthetic Used 5% Lidocaine 4% Lidocaine Gel Solution Lower Limb Edema Present Yes No Point of Measurement (cm from the distal 38.6 point) Left Calf (cm) 38.2 Point of measurement (cm from the medial 20 instep) Left Ankle (cm) 20 WC - Nurse 2 - General Ulcer CM Notes Start: 02/10/22 10:06 Freq: Status: Active Protocol: Activity Type Activity Date Activity User E-Sign Co-Sign Detail Recorded Client Recorded Date Recorded By Document 02/10/22 10:32 [id number] 02/10/22 10:35 Document 02/17/22 11:36 [id number] 02/17/22 11:37 02/10/22 02/17/22 10:32 11:36 Wound Center Nurse 2 #1 L Lat LE -Time 10:32 -Correct Patient Yes No -Correct Side, Site, Position Yes No -Correct Procedure Yes No -Procedure Performed Yes No -Type of Procedure Debridement -Clinical Debridement Subcutaneous -Tissue Removed Subcutaneous -Post Debridement (cm) - Length 1.8 1.7 -Post Debridement (cm) - Width 1.5 1.7 -Post Debridement (cm) - Depth 0.2 0.2 -Total Square (Post) (cm) 2.70 2.89 -Area of Debridement (cm) - Length 1.8 1.7 -Area of Debridement (cm) - Width 1.5 1.7 -Total Square (Area) (cm) 2.70 2.89 -Tunneling No -Undermining/Tunneling No -Circular Undermining No -Wound/Ulcer Outcome Not Healed Not Healed -Ulcer Cleansing Rinsed/ Irrigated with Saline -Foul Odor after Cleansing No -Bioengineered Tissue No -Bleeding Controlled with Pressure -Treatment Response Procedure Tolerated Well -Offloading No -Debridement - Subq, 1st 20sq cm Yes Pain Scale: 0-10 Numeric Is Patient Pain Free? Yes Yes RICHIE - Nurse 3 - General Ulcer D/C NN Start: 02/10/22 10:06 Freq: Status: Active Protocol: Activity Type Activity Date Activity User E-Sign Co-Sign Detail Recorded Client Recorded Date Recorded By Document 02/10/22 10:42 [id number] 02/10/22 10:43 02/10/22 10:42 Wound Care Nurse 3 #1 L Lat LE -Ulcer Cleansing Soap and Water -Foul Odor after Cleansing No -Other Dressing Santyl -Primary Dressing Covered/Secured with Dry Gauze, Secured with Tape -Other Covering Tubigrip D Treatment Response Procedure Tolerated Well Pain Scale: 0-10 Numeric Is Patient Pain Free? Yes WC - Visit Discharge Discharge Condition Stable Ambulatory Status Ambulatory Transportation Private Auto Assessment/Plan Assessment/Plan (1) Peripheral vascular disease of lower extremity with ulceration: CODE(S): I73.9 - Peripheral vascular disease, unspecified; L97.909 - Non- pressure chronic ulcer of unspecified part of unspecified lower leg with unspecified severity (2) Ulcer of left lower extremity with fat layer exposed: CODE(S): L97.922 - Non-pressure chronic ulcer of unspecified part of left lower leg with fat layer exposed (3) History of total left knee replacement (TKR): CODE(S): Z96.652 - Presence of left artificial knee joint (4) Pain in wound: (5) Nerve pain: CODE(S): M79.2 - Neuralgia and neuritis, unspecified PLAN: Patient was seen and evaluated at the wound healing center today. She declined debridement this week because she is on . I suggested using the [employer] aqua debrider to see if we can get the non viable tissue off, plus it tends to be less painful. She declined this option of debridement also. Arterial studies done at [facility] on 02/07/22, Right MARILY = 1.53, artificially elevated. Left MARILY 1.37, normal. PVR waveforms of bilateral legs normal at rest. Waiting for venous studies. They were supposed to be completed last week and she missed her appointment. They have been rescheduled for tomorrow. Wound care -Santyl nickel thickness covered with gauze daily. Double layer tubigrip for compression. She would benefit from stronger compression such as 3M 2 layer wraps, but I would like to wait until she completes her vascular studies. Wound culture from 01/20/2022 was negative for bacterial growth. She had just completed an antibiotic from the ED before this culture. She should avoid standing for long periods of time. It is okay for her to walk for her activity, but may be she should avoid doing her kickboxing. Encouraged increase protein intake and increase Vitamin C intake to 1000mg/day to help with wound healing. Patient verbalizes frustration that she is not healed. Reinforced that her ulcer is on her her lower leg, it takes longer to heal. We may know more after her venous studies. She made an appointment with Dr. Card, Plastic Surgeon at [facility] for a consult for a surgical debridement. She states her appointment is tomorrow morning. Follow up in one week.
[2022-02-24 10:38] VITALS: BP 148/61; PULSE 78; TEMP 36.4; BMI 25.9
--- NOTE | 2022-02-24 13:03 | PN.PCM_ITS ---
History of Present Illness Date of Service: 02/24/22 Chief Complaint: Non healing left lateral leg ulcer History of Wound: Patient bumped her left lateral leg in December on the kneeler at [employer]. She has been placing antibiotic ointment on it. It was causing her so much pain that she ended up going to the ED for evaluation. She was started on Bactrim and clindamycin. She followed up with [facility]. She has now come to our wound center because her granddaughter works here. Her b iggest concern is she had her left knee replaced 2 years ago. She does not want her knee replacement to get infected. Her wound care has been Santyl covered by Emi. We will stop the Emi and only use Santyl, covered with gauze. Use a double layer Tubigrip for compression. Wound care - Vashe moistened gauze covered with gauze or ABD daily. Double tubigrip for compression. Wound culture from 01/20/2022 was negative for bacterial growth. She had just completed an antibiotic from the ED before this culture. Arterial studies done at [facility] on 02/07/22, Right MARILY = 1.53, ar tificially elevated. Left MARILY 1.37, normal. PVR waveforms of bilateral legs normal at rest. Waiting for venous studies. They were supposed to be completed two weeks ago but she missed her appointment. She thought they were rescheduled for 02/18 but they are actually rescheduled for 02/25/22. She made an appointment with a plastic surgeon last week and he recommends her seeing a vascular surgeon. I reinforced to her that she NEEDS to have her vascular studies completed before I can refer her to a vascular surgeon. Today she denies any fever, nausea or vomiting. She states she has a good appetite. Progress of Wound: Left lateral leg ulcer is stable. She continues to have a thick layer of milton non viable tissue in the base of the ulcer. She states that it is still very painful. She verbalizes that she is very frustrated with the ulcer not improving. Objective Data Objective Data Vital Signs: Vital Signs Temp Pulse Resp BP 97.5 F L 78 16 148/61 H 02/24/22 10:38 02/24/22 10:38 02/10/22 10:06 02/24/22 10:38 Oxygen Delivery Method Room Air Weight: 165 lb 12.203 oz Body Mass Index (BMI) 25.9 Charges/Coding Procedures Integumentary 111xxx-113xx: [id number] Latrice subq tissue 20 sq cm/< Physical Exam Const alert and oriented x3 HEENT normocephalic Resp normal respiratory effort Extremity normal capillary refill Extremity Narrative: +1-+2 left leg edema. Skin Wound Narrative: Left lower leg ulcer is stable. The wound bed continues to have milton, non viable tissue in the base. It is extremely painful to palpation. Neuro CN's II-XII intact bilaterally Psych Appearance: well kempt Debridement Note Debridement Note Wound debrided: leg ulcer Laterality: Left Type of Debridement: Excisional debridement Anesthesia Used: 5% Lidocaine Gel Depth: Down to and including healthy tissue and in the subcutaneous layer Percentage of wound debrided: 100 Instrument Used: - (Misonix aqua debrider) Tissue Removed: non viable tissue and slough Severity: Fat Layer Exposed Amount of bleeding with debridement: Mild Bleeding Controlled with: Pressure Patient tolerated procedure: Patient tolerated procedure well (Patient tolerated the debridement fairly well, although it was very painful for her) Debridement Free Text: The edges of the ulcer improved and had some bleeding but the fibrous base of the ulcer did not improve even using the Misonix debridement. Post-Debridement Measurements and Additional Note: Post-Debridement Measurements/Treatment - Nurse 1 - General Ulcer Assessment Start: 02/10/22 10:06 Freq: Status: Active Protocol: GER Activity Type Activity Date Activity User E-Sign Co-Sign Detail Recorded Client Recorded Date Recorded By Document 02/10/22 10:06 AKASH [id number] 02/10/22 10:15 Document 02/17/22 11:15 AK [id number] 02/17/22 11:17 AK Document 02/24/22 10:38 KR [id number] 02/24/22 10:40 KR 02/10/22 02/17/22 02/24/22 10:06 11:15 10:38 - Today's Visit Information Type of service Follow-up Visit Follow-up Visit Follow-up Visit (Physician/ACCOUNT SERVICES MANAGER (Physician/ACCOUNT SERVICES MANAGER (Physician/ACCOUNT SERVICES MANAGER ) ) ) Arrival Mode Ambulatory Ambulatory Ambulatory Transfer Assistance None Patient Identification Verified (Name & Yes Yes Yes ) Patient Requires Transmission-Based No No Precautions Safety Precautions NA Height and Weight Body Mass Index (BMI) 25.9 25.9 25.9 BMI Classification Overweight Overweight Overweight Vital Signs Temperature (97.8 F-99.1 F) 96.9 F L 97.2 F L 97.5 F L Temperature Source Temporal Temporal Temporal Pulse Rate (60-100) 84 80 78 Pulse Location Monitor Monitor Monitor Respiratory Rate (12-18) 16 Respiratory rate source Observation Oxygen Delivery Method Room Air Blood Pressure (90/60-120/80) 151/74 H 145/70 H 148/61 H Blood Pressure Mean (mm Hg) 99 95 90 Source Monitor Monitor Monitor Position Sitting Sitting Blood Pressure Location Left Arm History Since Last Visit- (Skip if this is Patient's initial visit) Have you changed medications since your No No No last visit? Any new allergies or adverse reactions No No No Had a fall/change in ADL's that may No No No increase risk of falls Signs or symptoms of abuse and/or No No No neglect since last visit Have you been in the hospital since your No No No last visit? Has dressing in place as prescribed Yes Yes Yes Has compression in place as prescribed Yes Yes Yes Has offloadiing in place as prescribed N/A N/A N/A Experienced any changes in pain level or No No No management Left Footwear Regular Shoe Regular Shoe Regular Shoe Right Footwear Regular Shoe Regular Shoe Regular Shoe Pain Scale: 0-10 Numeric Is Patient Pain Free? Yes Yes Yes WC - Nurse 1 - General Ulcer Measurement Start: 02/10/22 10:06 Freq: Status: Active Protocol: Activity Type Activity Date Activity User E-Sign Co-Sign Detail Recorded Client Recorded Date Recorded By Document 02/10/22 10:06 AKASH [id number] 02/10/22 10:15 AKASH Document 02/17/22 11:15 AK [id number] 02/17/22 11:17 AK Document 02/24/22 10:38 KR [id number] 02/24/22 10:40 KR 02/10/22 02/17/22 02/24/22 10:06 11:15 10:38 Wound Center Nurse 1 #1 L Lat LE -Combined with other wound No No -Current Size (cm) - Length 1.8 1.5 1.8 -Current Size (cm) - Width 1.5 1.3 1.7 -Current Size (cm) - Depth 0.3 0.2 0.2 -Total Square Cm 2.70 1.95 3.06 -Date of Last Picture (Recall this 02/10/22 field) -Photo Taken Yes No -Epithelialization None Present None Present -Tunneling No No -Undermining/Tunneling No No -Circular Undermining No No -Change in Wound Grade/Stage No -Exudate Amt Medium Medium Medium -Exudate Type Serosanguineous Serosanguineous Yellow/Green -Wound Margin Distinct, Distinct, Distinct, Outline Outline Outline Attached Attached Attached -Granulation Amt None Present (0 None Present (0 None Present (0 %) %) %) -Granulation Quality N/A -Slough/Fibrin Yes Yes Yes -Necrosis Amt Large (67-100%) Medium (34-66%) Large (67-100%) -Necrotic Tissue Type Adherent Slough Adherent Slough Adherent Slough -Structure Exposed N/A -Texture (Janice-wound Skin Appearance) Assessed, No Abnormality, Assessed, Scarring Assessed, Scarring Scarring -Moisture (Janice-wound Skin Appearance) Assessed No Abnormality, Assessed, Assessed Maceration -Color (Janice-wound Skin Appearance) Assessed, Assessed, No Abnormality, Hemosiderin Hemosiderin Assessed Staining Staining -Temperature (Janice-wound Skin No Abnormality No Abnormality No Abnormality Appearance) (Pt Warm) (Pt Warm) (Pt Warm) -Tenderness on Palpation (Janice-wound No Yes No Skin Appearance) -Ulcer Cleansing Rinsed/ Rinsed/ Rinsed/ Irrigated with Irrigated with Irrigated with Saline Saline Saline -Foul Odor after Cleansing No No No -Anesthetic Used 5% Lidocaine 4% Lidocaine 5% Lidocaine Gel Solution Gel Lower Limb Edema Present Yes No Point of Measurement (cm from the distal 38.6 point) Left Calf (cm) 38.2 Point of measurement (cm from the medial 20 instep) Left Ankle (cm) 20 WC - Nurse 2 - General Ulcer CM Notes Start: 02/10/22 10:06 Freq: Status: Active Protocol: Activity Type Activity Date Activity User E-Sign Co-Sign Detail Recorded Client Recorded Date Recorded By Document 02/10/22 10:32 AKASH [id number] 02/10/22 10:35 AKASH Document 02/17/22 11:36 [id number] 02/17/22 11:37 Document 02/24/22 11:15 [id number] 02/24/22 11:21 02/10/22 02/17/22 02/24/22 10:32 11:36 11:15 Wound Center Nurse 2 #1 L Lat LE -Time 10:32 11:15 -Correct Patient Yes No Yes -Correct Side, Site, Position Yes No Yes -Correct Procedure Yes No Yes -Procedure Performed Yes No Yes -Type of Procedure Debridement Debridement -Clinical Debridement Subcutaneous Subcutaneous -Tissue Removed Subcutaneous Subcutaneous -Post Debridement (cm) - Length 1.8 1.7 2.2 -Post Debridement (cm) - Width 1.5 1.7 2 -Post Debridement (cm) - Depth 0.2 0.2 0.4 -Total Square (Post) (cm) 2.70 2.89 4.4 -Area of Debridement (cm) - Length 1.8 1.7 2.2 -Area of Debridement (cm) - Width 1.5 1.7 2.0 -Total Square (Area) (cm) 2.70 2.89 4.40 -Tunneling No No -Undermining/Tunneling No No -Circular Undermining No No -Wound/Ulcer Outcome Not Healed Not Healed Not Healed -Ulcer Cleansing Rinsed/ Rinsed/ Irrigated with Irrigated with Saline Saline -Foul Odor after Cleansing No No -Bioengineered Tissue No No -Bleeding Controlled with Pressure Pressure -Treatment Response Procedure Procedure Tolerated Well Tolerated Well -Offloading No No -Debridement - Subq, 1st 20sq cm Yes Yes Pain Scale: 0-10 Numeric Is Patient Pain Free? Yes Yes Yes - Nurse 3 - General Ulcer D/C NN Start: 02/10/22 10:06 Freq: Status: Active Protocol: Activity Type Activity Date Activity User E-Sign Co-Sign Detail Recorded Client Recorded Date Recorded By Document 02/10/22 10:42 AKASH [id number] 02/10/22 10:43 Document 02/17/22 11:53 AK [id number] 02/17/22 11:53 AK Document 02/24/22 11:31 [facility] [id number] 02/24/22 11:33 BM 02/10/22 02/17/22 02/24/22 10:42 11:53 11:31 Wound Care Nurse 3 #1 L Lat LE -Ulcer Cleansing Soap and Water Rinsed/ Rinsed/ Irrigated with Irrigated with Saline Saline -Foul Odor after Cleansing No No No -Negative Pressure Wound Therapy N/A -Primary Dressing Applied Other -Other Dressing Santyl santyl vashe moistened gauze -Primary Dressing Covered/Secured with Dry Gauze, Dry Gauze & Dry Gauze & Secured with Roll Gauze Roll Gauze, Tape Secured with Tape -Other Covering Tubigrip D drsg per kr retail loan originator assistant Left -Other applied pts own double layer tubi size D (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 Yes Yes Yes WC - Visit Discharge Discharge Condition Stable Stable Stable Ambulatory Status Ambulatory Ambulatory Transportation Private Auto Private Auto Private Auto Medication Reconcilliation completed & Yes provided to patient/care provider Clinical Summary of Care Provided Yes Assessment/Plan Assessment/Plan (1) Ulcer of left lower extremity with fat layer exposed: CODE(S): L97.922 - Non-pressure chronic ulcer of unspecified part of left lower leg with fat layer exposed (2) Peripheral vascular disease of lower extremity with ulceration: CODE(S): I73.9 - Peripheral vascular disease, unspecified; L97.909 - Non- pressure chronic ulcer of unspecified part of unspecified lower leg with unspecified severity (3) Pain in wound: (4) History of total left knee replacement (TKR): CODE(S): Z96.652 - Presence of left artificial knee joint (5) Nerve pain: CODE(S): M79.2 - Neuralgia and neuritis, unspecified PLAN: Patient was seen and evaluated at the wound healing center today. We used the Misonix aqua debrider which was painful for her but not as painful as the traditional curette. Arterial studies done at [facility] on 02/07/22, Right MARILY = 1.53, artificially elevated. Left MARILY 1.37, normal. PVR waveforms of bilateral legs normal at rest. Waiting for venous studies. They were supposed to be completed two weeks ago but she missed her appointment. She thought they were rescheduled for 02/18 but they are actually rescheduled for 02/25/22. She had an appointment with a plastic surgeon, Dr. Card, Plastic Surgeon at [facility], for a consult for a surgical debridement last week and he recommends her seeing a vascular surgeon. I reinforced to her that she NEEDS to have her vascular studies completed before I can refer her to a vascular surgeon. Wound care - Vashe moistened gauze covered with gauze or ABD daily. Double tubigrip for compression. Wound culture from 01/20/2022 was negative for bacterial growth. She had just completed an antibiotic from the ED before this culture. She should avoid standing for long periods of time. It is okay for her to walk for her activity. Encouraged increase protein intake and increase Vitamin C intake to 1000mg/day to help with wound healing. Patient verbalizes frustration that she is not healed. Reinforced that her ulcer is on her her lower leg, it takes longer to heal. We may know more after her venous studies. Follow up in one week.
[2022-03-03 11:34] VITALS: BP 155/68; PULSE 77; TEMP 36.2; BMI 25.9
--- NOTE | 2022-03-03 13:19 | PCM.WC.PN ---
History of Present Illness Date of Service: 03/03/22 Chief Complaint: Non healing left lateral leg ulcer History of Wound: Patient bumped her left lateral leg in December on the kneeler at [employer]. She has been placing antibiotic ointment on it. It was causing her so much pain that she ended up going to the ED for evaluation. She was started on Bactrim and clindamycin. She followed up with [facility]. She has now come to our wound center because her granddaughter works here. Her biggest concern is she had her left knee replaced 2 years ago. She does not want her knee replacement to get infected. Her wound care has been Santyl covered by Emi. We will stop the Emi and only use Santyl, covered with gauze. Use a double layer Tubigrip for compression. Wound care - Vashe moistened gauze covered with gauze or ABD daily. Double tubigrip for compression. Wound culture from 01/20/2022 was negative for bacterial growth. She had just completed an antibiotic from the ED before this culture. Arterial studies done at [facility] on 02/07/22, Right MARILY = 1.53, artificially elevated. Left MARILY 1.37, normal. PVR waveforms of bilateral legs normal at rest. Venous studies were done at [facility] on 02/25/22 of her left leg showed the no evidence of acute deep or superficial venous thrombosis of the left lower extremity and the right common femoral vein fully compresses and demonstrates normal venous flow. It was not an in depth study. She made an appointment with a plastic surgeon last week and he recommends her seeing a vascular surgeon. I will refer her to a vascular surgeon, she would like to see Dr. Burnett at [facility]. Today she denies any fever, nausea or vomiting. She states she has a good appetite. Progress of Wound: Left lateral leg ulcer is stable. She continues to have a layer of milton non viable tissue in the base of the ulcer. She states that it is still very painful. Her debridement last week was with the Misonix aquasonic debrider and the patient states that her pain afterwards was not a severe as it is with a traditional curette. Objective Data Objective Data Vital Signs: Vital Signs Temp Pulse Resp BP 97.2 F L 77 16 155/68 H 03/03/22 11:34 03/03/22 11:34 02/10/22 10:06 03/03/22 11:34 Oxygen Delivery Method Room Air Weight: 165 lb 12.203 oz Body Mass Index (BMI) 25.9 Charges/Coding Procedures Integumentary 111xxx-113xx: [id number] Latrice subq tissue 20 sq cm/< Physical Exam Const alert and oriented x3 HEENT normocephalic Resp normal respiratory effort Extremity normal capillary refill Extremity Narrative: +2 left leg edema General Extremity: edema Skin Wound Narrative: Left leg ulcer continues to have a layer of milton non viable tissue present in the base of the wound bed. The ulcer continues to be very painful, especially with palpation and debridement. Neuro CN's II-XII intact bilaterally Psych Appearance: well kempt Debridement Note Debridement Note Wound debrided: Leg ulcer Laterality: Left Type of Debridement: Excisional debridement Anesthesia Used: 4% Lidocaine Solution and 5% Lidocaine Gel Depth: Down to and including healthy tissue and in the subcutaneous layer Instrument Used: - (Misonix aquasonic debridement) Tissue Removed: Non viable tissue and slough Severity: Fat Layer Exposed Amount of bleeding with debridement: Mild Bleeding Controlled with: Pressure Patient tolerated procedure: Patient tolerated procedure well Post-Debridement Measurements and Additional Note: Post-Debridement Measurements/Treatment - Nurse 1 - General Ulcer Assessment Start: 02/10/22 10:06 Freq: Status: Active Protocol: GER Activity Type Activity Date Activity User E-Sign Co-Sign Detail Recorded Client Recorded Date Recorded By Document 02/10/22 10:06 JF [id number] 02/10/22 10:15 JF Document 02/17/22 11:15 AK [id number] 02/17/22 11:17 AK Document 02/24/22 10:38 KR [id number] 02/24/22 10:40 KR Document 03/03/22 11:34 DL [id number] 03/03/22 11:35 DL 02/10/22 02/17/22 02/24/22 10:06 11:15 10:38 - Today's Visit Information Type of service Follow-up Visit Follow-up Visit Follow-up Visit (Physician/RESIDENTIAL CONSTRUCTION INSTRUCTOR (Physician/RESIDENTIAL CONSTRUCTION INSTRUCTOR (Physician/RESIDENTIAL CONSTRUCTION INSTRUCTOR ) ) ) Arrival Mode Ambulatory Ambulatory Ambulatory Transfer Assistance None Patient Identification Verified (Name & Yes Yes Yes ) Patient Requires Transmission-Based No No Precautions Safety Precautions NA Height and Weight Body Mass Index (BMI) 25.9 25.9 25.9 BMI Classification Overweight Overweight Overweight Vital Signs Temperature (97.8 F-99.1 F) 96.9 F L 97.2 F L 97.5 F L Temperature Source Temporal Temporal Temporal Pulse Rate (60-100) 84 80 78 Pulse Location Monitor Monitor Monitor Respiratory Rate (12-18) 16 Respiratory rate source Observation Oxygen Delivery Method Room Air Blood Pressure (90/60-120/80) 151/74 H 145/70 H 148/61 H Blood Pressure Mean (mm Hg) 99 95 90 Source Monitor Monitor Monitor Position Sitting Sitting Blood Pressure Location Left Arm History Since Last Visit- (Skip if this is Patient's initial visit) Have you changed medications since your No No No last visit? Any new allergies or adverse reactions No No No Had a fall/change in ADL's that may No No No increase risk of falls Signs or symptoms of abuse and/or No No No neglect since last visit Have you been in the hospital since your No No No last visit? Has dressing in place as prescribed Yes Yes Yes Has compression in place as prescribed Yes Yes Yes Has offloadiing in place as prescribed N/A N/A N/A Experienced any changes in pain level or No No No management Left Footwear Regular Shoe Regular Shoe Regular Shoe Right Footwear Regular Shoe Regular Shoe Regular Shoe Pain Scale: 0-10 Numeric Is Patient Pain Free? Yes Yes Yes 03/03/22 11:34 WC - Today's Visit Information Type of service Follow-up Visit (Physician/RESIDENTIAL CONSTRUCTION INSTRUCTOR ) Arrival Mode Ambulatory Transfer Assistance Patient Identification Verified (Name & Yes ) Patient Requires Transmission-Based Precautions Safety Precautions Height and Weight Body Mass Index (BMI) 25.9 BMI Classification Overweight Vital Signs Temperature (97.8 F-99.1 F) 97.2 F L Temperature Source Temporal Pulse Rate (60-100) 77 Pulse Location Monitor Respiratory Rate (12-18) Respiratory rate source Oxygen Delivery Method Blood Pressure (90/60-120/80) 155/68 H Blood Pressure Mean (mm Hg) 97 Source Monitor Position Semi-Fowlers Blood Pressure Location Left Arm History Since Last Visit- (Skip if this is Patient's initial visit) Have you changed medications since your No last visit? Any new allergies or adverse reactions No Had a fall/change in ADL's that may No increase risk of falls Signs or symptoms of abuse and/or No neglect since last visit Have you been in the hospital since your No last visit? Has dressing in place as prescribed Has compression in place as prescribed Yes Has offloadiing in place as prescribed N/A Experienced any changes in pain level or No management Left Footwear Regular Shoe Right Footwear Regular Shoe Pain Scale: 0-10 Numeric Is Patient Pain Free? Yes WC - Nurse 1 - General Ulcer Measurement Start: 02/10/22 10:06 Freq: Status: Active Protocol: Activity Type Activity Date Activity User E-Sign Co-Sign Detail Recorded Client Recorded Date Recorded By Document 02/10/22 10:06 JF [id number] 02/10/22 10:15 JF Document 02/17/22 11:15 AK [id number] 02/17/22 11:17 AK Document 02/24/22 10:38 KR [id number] 02/24/22 10:40 KR Document 03/03/22 11:34 DL [id number] 03/03/22 11:35 DL 02/10/22 02/17/22 02/24/22 10:06 11:15 10:38 Wound Center Nurse 1 #1 L Lat LE -Combined with other wound No No -Current Size (cm) - Length 1.8 1.5 1.8 -Current Size (cm) - Width 1.5 1.3 1.7 -Current Size (cm) - Depth 0.3 0.2 0.2 -Total Square Cm 2.70 1.95 3.06 -Date of Last Picture (Recall this 02/10/22 field) -Photo Taken Yes No -Epithelialization None Present None Present -Tunneling No No -Undermining/Tunneling No No -Circular Undermining No No -Change in Wound Grade/Stage No -Exudate Amt Medium Medium Medium -Exudate Type Serosanguineous Serosanguineous Yellow/Green -Wound Margin Distinct, Distinct, Distinct, Outline Outline Outline Attached Attached Attached -Granulation Amt None Present (0 None Present (0 None Present (0 %) %) %) -Granulation Quality N/A -Slough/Fibrin Yes Yes Yes -Necrosis Amt Large (67-100%) Medium (34-66%) Large (67-100%) -Necrotic Tissue Type Adherent Slough Adherent Slough Adherent Slough -Structure Exposed N/A -Texture (Janice-wound Skin Appearance) Assessed, No Abnormality, Assessed, Scarring Assessed, Scarring Scarring -Moisture (Janice-wound Skin Appearance) Assessed No Abnormality, Assessed, Assessed Maceration -Color (Janice-wound Skin Appearance) Assessed, Assessed, No Abnormality, Hemosiderin Hemosiderin Assessed Staining Staining -Temperature (Janice-wound Skin No Abnormality No Abnormality No Abnormality Appearance) (Pt Warm) (Pt Warm) (Pt Warm) -Tenderness on Palpation (Janice-wound No Yes No Skin Appearance) -Ulcer Cleansing Rinsed/ Rinsed/ Rinsed/ Irrigated with Irrigated with Irrigated with Saline Saline Saline -Foul Odor after Cleansing No No No -Anesthetic Used 5% Lidocaine 4% Lidocaine 5% Lidocaine Gel Solution Gel Lower Limb Edema Present Yes No Point of Measurement (cm from the distal 38.6 point) Left Calf (cm) 38.2 Point of measurement (cm from the medial 20 instep) Left Ankle (cm) 20 03/03/22 11:34 Wound Center Nurse 1 #1 L Lat LE -Combined with other wound -Current Size (cm) - Length 2.2 -Current Size (cm) - Width 2 -Current Size (cm) - Depth 0.4 -Total Square Cm 4.4 -Date of Last Picture (Recall this field) -Photo Taken -Epithelialization -Tunneling -Undermining/Tunneling -Circular Undermining -Change in Wound Grade/Stage -Exudate Amt Medium -Exudate Type Yellow/Green -Wound Margin Distinct, Outline Attached -Granulation Amt -Granulation Quality -Slough/Fibrin -Necrosis Amt Large (67-100%) -Necrotic Tissue Type Adherent Slough -Structure Exposed -Texture (Janice-wound Skin Appearance) Assessed, Scarring -Moisture (Janice-wound Skin Appearance) No Abnormality, Assessed -Color (Janice-wound Skin Appearance) No Abnormality, Assessed -Temperature (Janice-wound Skin No Abnormality Appearance) (Pt Warm) -Tenderness on Palpation (Janice-wound No Skin Appearance) -Ulcer Cleansing Rinsed/ Irrigated with Saline -Foul Odor after Cleansing No -Anesthetic Used 4% Lidocaine Solution,5% Lidocaine Gel Lower Limb Edema Present Point of Measurement (cm from the distal point) Left Calf (cm) Point of measurement (cm from the medial instep) Left Ankle (cm) WC - Nurse 2 - General Ulcer CM Notes Start: 02/10/22 10:06 Freq: Status: Active Protocol: Activity Type Activity Date Activity User E-Sign Co-Sign Detail Recorded Client Recorded Date Recorded By Document 02/10/22 10:32 [id number] 02/10/22 10:35 Document 02/17/22 11:36 [id number] 02/17/22 11:37 Document 02/24/22 11:15 [id number] 02/24/22 11:21 Document 03/03/22 12:12 [id number] 03/03/22 12:17 02/10/22 02/17/22 02/24/22 10:32 11:36 11:15 Wound Center Nurse 2 #1 L Lat LE -Time 10:32 11:15 -Correct Patient Yes No Yes -Correct Side, Site, Position Yes No Yes -Correct Procedure Yes No Yes -Procedure Performed Yes No Yes -Type of Procedure Debridement Debridement -Clinical Debridement Subcutaneous Subcutaneous -Tissue Removed Subcutaneous Subcutaneous -Post Debridement (cm) - Length 1.8 1.7 2.2 -Post Debridement (cm) - Width 1.5 1.7 2 -Post Debridement (cm) - Depth 0.2 0.2 0.4 -Total Square (Post) (cm) 2.70 2.89 4.4 -Area of Debridement (cm) - Length 1.8 1.7 2.2 -Area of Debridement (cm) - Width 1.5 1.7 2.0 -Total Square (Area) (cm) 2.70 2.89 4.40 -Tunneling No No -Undermining/Tunneling No No -Circular Undermining No No -Wound/Ulcer Outcome Not Healed Not Healed Not Healed -Ulcer Cleansing Rinsed/ Rinsed/ Irrigated with Irrigated with Saline Saline -Foul Odor after Cleansing No No -Bioengineered Tissue No No -Bleeding Controlled with Pressure Pressure -Treatment Response Procedure Procedure Tolerated Well Tolerated Well -Offloading No No -Debridement - Subq, 1st 20sq cm Yes Yes Pain Scale: 0-10 Numeric Is Patient Pain Free? Yes Yes Yes 03/03/22 12:12 Wound Center Nurse 2 #1 L Lat LE -Time 12:12 -Correct Patient Yes -Correct Side, Site, Position Yes -Correct Procedure Yes -Procedure Performed Yes -Type of Procedure Debridement -Clinical Debridement Subcutaneous -Tissue Removed Subcutaneous -Post Debridement (cm) - Length 2.4 -Post Debridement (cm) - Width 2.2 -Post Debridement (cm) - Depth 0.4 -Total Square (Post) (cm) 5.28 -Area of Debridement (cm) - Length 2.4 -Area of Debridement (cm) - Width 2.2 -Total Square (Area) (cm) 5.28 -Tunneling No -Undermining/Tunneling No -Circular Undermining No -Wound/Ulcer Outcome Not Healed -Ulcer Cleansing Rinsed/ Irrigated with Saline -Foul Odor after Cleansing No -Bioengineered Tissue No -Bleeding Controlled with Pressure -Treatment Response Procedure Tolerated Well -Offloading No -Debridement - Subq, 1st 20sq cm Yes Pain Scale: 0-10 Numeric Is Patient Pain Free? Yes - Nurse 3 - General Ulcer D/C NN Start: 02/10/22 10:06 Freq: Status: Active Protocol: Activity Type Activity Date Activity User E-Sign Co-Sign Detail Recorded Client Recorded Date Recorded By Document 02/10/22 10:42 [id number] 02/10/22 10:43 Document 02/17/22 11:53 [place] [id number] 02/17/22 11:53 KS Document 02/24/22 11:31 [facility] [id number] 02/24/22 11:33 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 Yes Yes Yes WC - Visit Discharge Discharge Condition Stable Stable Stable Ambulatory Status Ambulatory Ambulatory Transportation Private Auto Private Auto Private Auto Medication Reconcilliation completed & Yes provided to patient/care provider Clinical Summary of Care Provided Yes 03/03/22 12:33 Wound Care Nurse 3 #1 L Lat LE -Ulcer Cleansing Rinsed/ Irrigated with Saline -Foul Odor after Cleansing No -Negative Pressure Wound Therapy -Primary Dressing Applied NonAdherent Contact Layer, Promogran,Other -Other Dressing optilock 5x5 -Primary Dressing Covered/Secured with -Other Covering -Promogran 1 Left -Lotion applied to leg before Yes compression wrap -Multi-Layered Wrap Application Multi-Layer Comp - Left ($) -Other Treatment Response Pain Scale: 0-10 Numeric Is Patient Pain Free? Yes WC - Visit Discharge Discharge Condition Stable Ambulatory Status Ambulatory Transportation Private Auto Medication Reconcilliation completed & Yes provided to patient/care provider Clinical Summary of Care Provided Yes Assessment/Plan Assessment/Plan (1) Ulcer of left lower extremity with fat layer exposed: CODE(S): L97.922 - Non-pressure chronic ulcer of unspecified part of left lower leg with fat layer exposed (2) Peripheral vascular disease of lower extremity with ulceration: CODE(S): I73.9 - Peripheral vascular disease, unspecified; L97.909 - Non-pressure chronic ulcer of unspecified part of unspecified lower leg with unspecified severity (3) Nerve pain: CODE(S): M79.2 - Neuralgia and neuritis, unspecified (4) Pain in wound: (5) History of total left knee replacement (TKR): CODE(S): Z96.652 - Presence of left artificial knee joint PLAN: Patient was seen and evaluated at the wound healing center today. We used the Misonix aqua debrider which was painful for her but not as painful as the traditional curette. Arterial studies done at [facility] on 02/07/22, Right MARILY = 1.53, artificially elevated. Left MARILY 1.37, normal. PVR waveforms of bilateral legs normal at rest. Venous studies done 02/25/22 which did not show much. She had an appointment with a plastic surgeon, Dr. Card, Plastic Surgeon at [facility], for a consult for a surgical debridement last week and he recommends her seeing a vascular surgeon. I will refer her to see a vascular surgeon for further evaluation. I believe this ulcer is venous in origin due to the amount of pain she is experiencing. She would like to be referred to Dr. Burnett at [facility]. Wound care - She did not tolerate the Vashe solution because it was causing too much burning. Will apply moistened Promogram topped with adaptic and gauze. Will place 3M 2 layer wraps for compression. She can return in 3-4 days to have the wraps changed. Wound culture from 01/20/2022 was negative for bacterial growth. She had just completed an antibiotic from the ED before this culture. She should avoid standing for long periods of time. It is okay for her to walk for her activity. Encouraged increase protein intake and increase Vitamin C intake to 1000mg/day to help with wound healing. Patient verbalizes frustration that she is not healed. Reinforced that her ulcer is on her her lower leg, it takes longer to heal. We may know more after her venous studies. Follow up in one week to see me. Follow up at the end of the week for a nurses visit to have the 3M 2 layer wraps changed. .
[2022-03-06 11:56] VITALS: BP 145/74; PULSE 78; TEMP 36.1; BMI 25.9
== END 2022-03-08 23:59 | disposition home or self-care (01) ==
LOC: WC 11:30
PROVIDERS: Visit Provider Nurse Practitioner Family
DX: L97.922 Non-pressure chronic ulcer of unspecified part of left lower leg with fat layer exposed (principal); I73.9 Peripheral vascular disease, unspecified; G62.9 Polyneuropathy, unspecified; M79.2 Neuralgia and neuritis, unspecified; Z96.652 Presence of left artificial knee joint
CPT/HCPCS: 11042; 29581; 99213; G0463

== ENCOUNTER 2022-04-01 14:30 | Outpatient (RCR) | payer OTHER, SELFPAY ==
[2022-03-09 00:40] VITALS: BP 145/74; PULSE 78; RESP 16; TEMP 36.1; BMI 25.9
[2022-03-10 10:24] VITALS: BP 150/79; PULSE 76; TEMP 36.4; BMI 25.9
--- NOTE | 2022-03-10 12:44 | PN.PCM_ITS ---
History of Present Illness Date of Service: 03/10/22 Chief Complaint: Non healing left lateral leg ulcer History of Wound: Patient bumped her left lateral leg in December on the kneeler at [employer]. She has been placing antibiotic ointment on it. It was causing her so much pain that she ended up going to the ED for evaluation. She was started on Bactrim and clindamycin. She followed up with [place] wound [facility]. She has now come to our wound center because her granddaughter works here. Her b iggest concern is she had her left knee replaced 2 years ago. She does not want her knee replacement to get infected. Her wound care has been Santyl covered by Emi. We will stop the Emi and only use Santyl, covered with gauze. Use a double layer Tubigrip for compression. Wound care - Vashe moistened gauze covered with gauze or ABD daily. Double tubigrip for compression. Wound culture from 01/20/2022 was negative for bacterial growth. She had just completed an antibiotic from the ED before this culture. Arterial studies done at [facility] on 02/07/22, Right MARILY = 1.53, ar tificially elevated. Left MARILY 1.37, normal. PVR waveforms of bilateral legs normal at rest. Venous studies were done at [facility] on 02/25/22 of her left leg showed the no evidence of acute deep or superficial venous thrombosis of the left lower extremity and the right common femoral vein fully compresses and demonstrates normal venous flow. It was not an in depth study. She made an appointment with a plastic surgeon a couple weeks ago and he recommends her seeing a vascular surgeon. She see Dr. Burnett, a vascular surgeon at [facility] tomorrow. Today she denies any fever, nausea or vomiting. She states she has a good appetite. Progress of Wound: Left lateral leg ulcer is stable. There is less edema with her wearing the 3M 2 layer wraps. She states that the pain has also improved since wearing the wraps. Objective Data Objective Data Vital Signs: Vital Signs Temp Pulse Resp BP 97.5 F L 76 16 150/79 H 03/10/22 10:24 03/10/22 10:24 03/09/22 00:40 03/10/22 10:24 Weight: 165 lb 12.203 oz Body Mass Index (BMI) 25.9 Charges/Coding Visit Charges Office Visits / Consults: 53037 OV L3 Est Physical Exam Const alert and oriented x3 HEENT normocephalic Resp normal respiratory effort Cardio regular rate Skin Wound Narrative: Left lateral leg ulcer continues to be fibrous in the base of the ulcer but the edges are flat and pink in color. Neuro CN's II-XII intact bilaterally Psych Appearance: well kempt Debridement Note Debridement Note No debridement was completed: No debridement was completed today Post-Debridement Measurements and Additional Note: Post-Debridement Measurements/Treatment WC - Nurse 1 - General Ulcer Assessment Start: 03/10/22 10:22 Freq: Status: Active Protocol: GER Activity Type Activity Date Activity User E-Sign Co-Sign Detail Recorded Client Recorded Date Recorded By Document 03/10/22 10:24 DL [id number] 03/10/22 10:28 DL 03/10/22 10:24 WC - Today's Visit Information Type of service Follow-up Visit (Physician/DRIED FRUIT WASHER ) Arrival Mode Ambulatory Patient Identification Verified (Name & Yes ) Height and Weight Body Mass Index (BMI) 25.9 BMI Classification Overweight Vital Signs Temperature (97.8 F-99.1 F) 97.5 F L Temperature Source Temporal Pulse Rate (60-100) 76 Pulse Location Monitor Blood Pressure (90/60-120/80) 150/79 H Blood Pressure Mean (mm Hg) 102 Source Monitor Position Sitting Blood Pressure Location Right Arm History Since Last Visit- (Skip if this is Patient's initial visit) Have you changed medications since your No last visit? Any new allergies or adverse reactions No Had a fall/change in ADL's that may No increase risk of falls Signs or symptoms of abuse and/or No neglect since last visit Have you been in the hospital since your No last visit? Has dressing in place as prescribed Yes Has compression in place as prescribed Yes Has offloadiing in place as prescribed N/A Experienced any changes in pain level or No management Left Footwear Regular Shoe Right Footwear Regular Shoe Pain Scale: 0-10 Numeric Is Patient Pain Free? Yes - Nurse 1 - General Ulcer Measurement Start: 03/10/22 10:22 Freq: Status: Active Protocol: Activity Type Activity Date Activity User E-Sign Co-Sign Detail Recorded Client Recorded Date Recorded By Document 03/10/22 10:24 DL [id number] 03/10/22 10:28 DL 03/10/22 10:24 Wound Center Nurse 1 #1 L Lat LE -Current Size (cm) - Length 2.1 -Current Size (cm) - Width 2 -Current Size (cm) - Depth 0.3 -Total Square Cm 4.2 -Exudate Amt Medium -Exudate Type Yellow/Green -Wound Margin Distinct, Outline Attached -Granulation Amt None Present (0 %) -Necrosis Amt Large (67-100%) -Necrotic Tissue Type Adherent Slough -Moisture (Janice-wound Skin Appearance) Assessed,Dry/ Scaly -Color (Janice-wound Skin Appearance) No Abnormality, Assessed -Temperature (Janice-wound Skin No Abnormality Appearance) (Pt Warm) -Tenderness on Palpation (Janice-wound No Skin Appearance) -Ulcer Cleansing Rinsed/ Irrigated with Saline -Foul Odor after Cleansing No -Anesthetic Used 5% Lidocaine Gel WC - Nurse 2 - General Ulcer CM Notes Start: 03/10/22 10:22 Freq: Status: Active Protocol: Activity Type Activity Date Activity User E-Sign Co-Sign Detail Recorded Client Recorded Date Recorded By Document 03/10/22 10:49 [id number] 03/10/22 10:50 AKASH 03/10/22 10:49 Wound Center Nurse 2 -Correct Patient No -Correct Side, Site, Position No -Correct Procedure No -Procedure Performed No -Wound/Ulcer Outcome Not Healed -Debridement - Subq, 1st 20sq cm No Pain Scale: 0-10 Numeric Is Patient Pain Free? Yes - Nurse 3 - General Ulcer D/C NN Start: 03/10/22 10:22 Freq: Status: Active Protocol: Activity Type Activity Date Activity User E-Sign Co-Sign Detail Recorded Client Recorded Date Recorded By Document 03/10/22 11:11 FARAZ [id number] 03/10/22 11:11 KR 03/10/22 11:11 Wound Care Nurse 3 #1 L Lat LE -Ulcer Cleansing Rinsed/ Irrigated with Saline -Primary Dressing Covered/Secured with Dry Gauze, Secured with Tape Left -Tubular Bandage Double Layer -Size of Tubigrip Used Size D -Size D ($) 2 Pain Scale: 0-10 Numeric Is Patient Pain Free? Yes WC - Visit Discharge Discharge Condition Stable Ambulatory Status Ambulatory Transportation Private Auto Accompanied by eri Assessment/Plan Assessment/Plan (1) Ulcer of left lower extremity with fat layer exposed: CODE(S): L97.922 - Non-pressure chronic ulcer of unspecified part of left lower leg with fat layer exposed (2) Nerve pain: CODE(S): M79.2 - Neuralgia and neuritis, unspecified (3) Peripheral vascular disease of lower extremity with ulceration: CODE(S): I73.9 - Peripheral vascular disease, unspecified; L97.909 - Non- pressure chronic ulcer of unspecified part of unspecified lower leg with unspecified severity (4) History of total left knee replacement (TKR): CODE(S): Z96.652 - Presence of left artificial knee joint (5) Pain in wound: PLAN: Patient was seen and evaluated at the wound healing center today. No debridement was performed today per patient request. Arterial studies done at [facility] on 02/07/22, Right MARILY = 1.53, artificially elevated. Left MARILY 1.37, normal. PVR waveforms of bilateral legs normal at rest. Venous studies done 02/25/22 which did not show much. She had an appointment with a plastic surgeon, Dr. Card, Plastic Surgeon at [facility], for a consult for a surgical debridement a couple weeks ago and he recommends her seeing a vascular surgeon. She has been referred to see Dr. Burnett, a vascular surgeon at [facility] tomorrow. She made an appointment with dermatology later today for a skin check and to see if they will be able to close her ulcer. She has a history of basal cell skin cancer. I reinforced that seeing the vascular surgeon is very important to keep. Wound care - Santyl nickel thickness covered by gauze daily. Double layer tubigrip for compression. She will come in later in the week for her 3M 2 layer wraps and we will apply moistened Promogram topped with adaptic and gauze at that time. Wound culture from 01/20/2022 was negative for bacterial growth. She had just completed an antibiotic from the ED before this culture. She should avoid standing for long periods of time. It is okay for her to walk for her activity. Encouraged increase protein intake and increase Vitamin C intake to 1000mg/day to help with wound healing. Patient verbalizes frustration that she is not healed. Reinforced that her ulcer is on her her lower leg, it takes longer to heal. We may know more after her venous studies. Follow up in one week to see me. Follow up at the end of the week for a nurses visit to have the 3M 2 layer wrap reapplied after all her other doctor visits this week.
[2022-03-14 10:23] VITALS: BMI 25.9
[2022-03-25 13:46] VITALS: BP 120/66; PULSE 87; TEMP 36.1; BMI 25.9
--- NOTE | 2022-03-25 16:33 | PCM.WC.PN ---
History of Present Illness Date of Service: 03/25/22 Chief Complaint: Non healing left lateral leg ulcer History of Wound: Patient bumped her left lateral leg in December on the kneeler at [employer]. She has been placing antibiotic ointment on it. It was causing her so much pain that she ended up going to the ED for evaluation. She was started on Bactrim and clindamycin. She followed up with [place] [facility]. She has now come to our wound center because her granddaughter works here. Her biggest concern is she had her left knee replaced 2 years ago. She does not want her knee replacement to get infected. Her wound care has been Santyl covered by Emi. We will stop the Emi and only use Santyl, covered with gauze. Use a double layer Tubigrip for compression. Wound care - Santyl nickel thickness covered with gauze or ABD daily. 3M 2 layer wraps for compression. Wound culture from 01/20/2022 was negative for bacterial growth. She had just completed an antibiotic from the ED before this culture. Arterial studies done at [facility] on 02/07/22, Right MARILY = 1.53, artificially elevated. Left MARILY 1.37, normal. PVR waveforms of bilateral legs normal at rest. Venous studies were done at [facility] on 02/25/22 of her left leg showed the no evidence of acute deep or superficial venous thrombosis of the left lower extremity and the right common femoral vein fully compresses and demonstrates normal venous flow. It was not an in depth study. She made an appointment with a plastic surgeon a couple weeks ago and he recommends her seeing a vascular surgeon. She see Dr. Burnett, a vascular surgeon at [facility] tomorrow. Today she denies any fever, nausea or vomiting. She states she has a good appetite. Progress of Wound: Left lateral leg ulcer has less depth. There still is the milton biofilm on the base of the ulcer, but that is improving. There is less edema with her wearing the 3M 2 layer wraps. She states that the pain has also improved since wearing the wraps. Objective Data Objective Data Vital Signs: Vital Signs Temp Pulse Resp BP 97.0 F L 87 16 120/66 03/25/22 13:46 03/25/22 13:46 03/09/22 00:40 03/25/22 13:46 Weight: 165 lb 12.203 oz Body Mass Index (BMI) 25.9 Charges/Coding Visit Charges Office Visits / Consults: 00285 OV L3 Est Physical Exam Const alert and oriented x3 HEENT normocephalic Resp normal respiratory effort Cardio regular rate Skin Wound Narrative: Left lateral leg ulcer continues to be fibrous in the base of the ulcer but there is less depth now that she has good compression. Neuro CN's II-XII intact bilaterally Psych Appearance: well kempt Debridement Note Debridement Note Wound debrided: leg ulcer Laterality: Left No debridement was completed: No debridement was completed today Post-Debridement Measurements and Additional Note: Post-Debridement Measurements/Treatment WC - Nurse 1 - General Ulcer Assessment Start: 03/10/22 10:22 Freq: Status: Active Protocol: GER Activity Type Activity Date Activity User E-Sign Co-Sign Detail Recorded Client Recorded Date Recorded By Document 03/10/22 10:24 DL [id number] 03/10/22 10:28 DL Document 03/14/22 10:23 AK [id number] 03/14/22 10:28 AK Document 03/25/22 13:46 KR [id number] 03/25/22 13:48 KR 03/10/22 03/14/22 03/25/22 10:24 10:23 13:46 - Today's Visit Information Type of service Follow-up Visit Follow-up Visit Follow-up Visit (Physician/PROPERTY MANAGEMENT BOOKKEEPER (Physician/PROPERTY MANAGEMENT BOOKKEEPER (Physician/PROPERTY MANAGEMENT BOOKKEEPER ) ) ) Arrival Mode Ambulatory Ambulatory Ambulatory Patient Identification Verified (Name & Yes Yes Yes ) Patient Requires Transmission-Based No Precautions Safety Precautions NA Height and Weight Body Mass Index (BMI) 25.9 25.9 25.9 BMI Classification Overweight Overweight Overweight Vital Signs Temperature (97.8 F-99.1 F) 97.5 F L 97.0 F L Temperature Source Temporal Temporal Pulse Rate (60-100) 76 87 Pulse Location Monitor Monitor Blood Pressure (90/60-120/80) 150/79 H 120/66 Blood Pressure Mean (mm Hg) 102 84 Source Monitor Monitor Position Sitting Sitting Blood Pressure Location Right Arm Left Arm History Since Last Visit- (Skip if this is Patient's initial visit) Have you changed medications since your No No No last visit? Any new allergies or adverse reactions No No No Had a fall/change in ADL's that may No No No increase risk of falls Signs or symptoms of abuse and/or No No No neglect since last visit Have you been in the hospital since your No No No last visit? Has dressing in place as prescribed Yes Yes Yes Has compression in place as prescribed Yes Yes Yes Has offloadiing in place as prescribed N/A N/A N/A Experienced any changes in pain level or No No No management Left Footwear Regular Shoe Regular Shoe Regular Shoe Right Footwear Regular Shoe Regular Shoe Regular Shoe Pain Scale: 0-10 Numeric Is Patient Pain Free? Yes No Yes WC - Nurse 1 - General Ulcer Measurement Start: 03/10/22 10:22 Freq: Status: Active Protocol: Activity Type Activity Date Activity User E-Sign Co-Sign Detail Recorded Client Recorded Date Recorded By Document 03/10/22 10:24 DL [id number] 03/10/22 10:28 DL Document 03/25/22 13:46 KR [id number] 03/25/22 13:48 KR 03/10/22 03/25/22 10:24 13:46 Wound Center Nurse 1 #1 L Lat LE -Current Size (cm) - Length 2.1 1.9 -Current Size (cm) - Width 2 1.4 -Current Size (cm) - Depth 0.3 0.2 -Total Square Cm 4.2 2.66 -Exudate Amt Medium Medium -Exudate Type Yellow/Green Yellow/Green -Wound Margin Distinct, Distinct, Outline Outline Attached Attached -Granulation Amt None Present (0 Small (1-33%) %) -Granulation Quality [place] -Necrosis Amt Large (67-100%) Large (67-100%) -Necrotic Tissue Type Adherent Slough Adherent Slough -Texture (Janice-wound Skin Appearance) Assessed, Scarring -Moisture (Janice-wound Skin Appearance) Assessed,Dry/ No Abnormality, Scaly Assessed -Color (Janice-wound Skin Appearance) No Abnormality, No Abnormality, Assessed Assessed -Temperature (Janice-wound Skin No Abnormality No Abnormality Appearance) (Pt Warm) (Pt Warm) -Tenderness on Palpation (Janice-wound No No Skin Appearance) -Ulcer Cleansing Rinsed/ Rinsed/ Irrigated with Irrigated with Saline Saline -Foul Odor after Cleansing No No -Anesthetic Used 5% Lidocaine 4% Lidocaine Gel Solution,5% Lidocaine Gel WC - Nurse 2 - General Ulcer CM Notes Start: 03/10/22 10:22 Freq: Status: Active Protocol: Activity Type Activity Date Activity User E-Sign Co-Sign Detail Recorded Client Recorded Date Recorded By Document 03/10/22 10:49 [id number] 03/10/22 10:50 Document 03/25/22 14:11 [id number] 03/25/22 14:24 03/10/22 03/25/22 10:49 14:11 Wound Center Nurse 2 #1 L Lat LE -Correct Patient No No -Correct Side, Site, Position No No -Correct Procedure No No -Procedure Performed No No -Tunneling No -Undermining/Tunneling No -Circular Undermining No -Wound/Ulcer Outcome Not Healed Not Healed -Bleeding Controlled with Pressure -Treatment Response Procedure Tolerated Well -Offloading No -Debridement - Subq, 1st 20sq cm No No Pain Scale: 0-10 Numeric Is Patient Pain Free? Yes Yes WC - Nurse 3 - General Ulcer D/C NN Start: 03/10/22 10:22 Freq: Status: Active Protocol: Activity Type Activity Date Activity User E-Sign Co-Sign Detail Recorded Client Recorded Date Recorded By Document 03/10/22 11:11 KR [id number] 03/10/22 11:11 KR Document 03/14/22 10:23 AK [id number] 03/14/22 10:28 AK Document 03/19/22 07:56 PL [id number] 03/24/22 07:56 PL Document 03/25/22 14:42 [facility] [id number] 03/25/22 14:42 BMF 03/10/22 03/14/22 03/19/22 11:11 10:23 07:56 Wound Care Nurse 3 #1 L Lat LE -Ulcer Cleansing Rinsed/ Rinsed/ Irrigated with Irrigated with Saline Saline -Foul Odor after Cleansing No -Negative Pressure Wound Therapy N/A -Primary Dressing Applied NonAdherent Contact Layer, Promogran -Other Dressing -Primary Dressing Covered/Secured with Dry Gauze, Dry Gauze Secured with Tape -Other Covering -Promogran 0 Left -Lotion applied to leg before No compression wrap -Multi-Layered Wrap Application Multi-Layer Multi-Layer Comp - Left ($) Comp - Left ($) -Tubular Bandage Double Layer -Size of Tubigrip Used Size D -Size D ($) 2 -Other own Treatment Response Pain Scale: 0-10 Numeric Is Patient Pain Free? Yes No Yes WC - Visit Discharge Discharge Condition Stable Ambulatory Status Ambulatory Transportation Private Auto Accompanied by eri 03/25/22 14:42 Wound Care Nurse 3 #1 L Lat LE -Ulcer Cleansing Rinsed/ Irrigated with Saline -Foul Odor after Cleansing No -Negative Pressure Wound Therapy -Primary Dressing Applied Other -Other Dressing SANTYL -Primary Dressing Covered/Secured with Dry Gauze & Roll Gauze, Secured with Tape -Other Covering DRSG PER KR FLOORS BUFFER -Promogran Left -Lotion applied to leg before compression wrap -Multi-Layered Wrap Application -Tubular Bandage Double Layer -Size of Tubigrip Used Size D -Size D ($) 1 -Other Treatment Response Procedure Tolerated Well Pain Scale: 0-10 Numeric Is Patient Pain Free? Yes WC - Visit Discharge Discharge Condition Stable Ambulatory Status Ambulatory Transportation Private Auto Accompanied by Assessment/Plan Assessment/Plan (1) Ulcer of left lower extremity with fat layer exposed: CODE(S): L97.922 - Non-pressure chronic ulcer of unspecified part of left lower leg with fat layer exposed (2) Nerve pain: CODE(S): M79.2 - Neuralgia and neuritis, unspecified (3) Peripheral vascular disease of lower extremity with ulceration: CODE(S): I73.9 - Peripheral vascular disease, unspecified; L97.909 - Non-pressure chronic ulcer of unspecified part of unspecified lower leg with unspecified severity (4) History of total left knee replacement (TKR): CODE(S): Z96.652 - Presence of left artificial knee joint (5) Pain in wound: PLAN: Patient was seen and evaluated at the wound healing center today. No debridement was performed today per patient request. She is going to see the vascular surgeon tomorrow and she wants him to see her ulcer as it is. Arterial studies done at [facility] on 02/07/22, Right MARILY = 1.53, artificially elevated. Left MARILY 1.37, normal. PVR waveforms of bilateral legs normal at rest. Venous studies done 02/25/22 which did not show much. 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 Reflux noted in right and left lower extremities. She had an appointment with a plastic surgeon, Dr. Card, Plastic Surgeon at [facility], for a consult for a surgical debridement a couple weeks ago and he recommends her seeing a vascular surgeon. She has been referred to see Dr. Burnett, a vascular surgeon at [facility], which she saw his PA on 03/11/22 and she is scheduled to see him tomorrow. She made an appointment with dermatology later today for a skin check and to see if they will be able to close her ulcer. She has a history of basal cell skin cancer. I reinforced that seeing the vascular surgeon is very important to keep. Wound care - Santyl nickel thickness covered by gauze daily. Double layer tubigrip for compression. She does not want to have the 3M's on when she sees the vascular surgeon. Wound culture from 01/20/2022 was negative for bacterial growth. She had just completed an antibiotic from the ED before this culture. She should avoid standing for long periods of time. It is okay for her to walk for her activity. Encouraged increase protein intake and increase Vitamin C intake to 1000mg/day to help with wound healing. Patient verbalizes frustration that she is not healed. Reinforced that her ulcer is on her her lower leg, it takes longer to heal. We may know more after she sees the vascular surgeon. Patient is under a lot of stress from caring for her who doesn't sleep and at night. She states he wakes her up multiple times at night. Suggested having family members spend the night 1-2 times a week to help care for him so she is able to get some sleep. Discussed how stress can slow the healing process down. Had a discussion about her transferring to the [place] wound center since it is closer to home. She states that she likes the break it gives her to come here. Discussed why she is not a candidate for HBO therapy due to her diagnosis. Discussed the importance of debridement to help with healing. Patient states she does not want to be debrided before seeing the vascular surgeon and having too much pain. She does state that her pain is less with the [employer] aquasonic debrider than a traditional curette. Follow up in one week.
[2022-04-01 14:39] VITALS: BP 146/74; PULSE 84; RESP 16; TEMP 36.1; BMI 25.9
--- NOTE | 2022-04-01 15:58 | PN.PCM_ITS ---
History of Present Illness Date of Service: 04/01/22 Chief Complaint: Non healing left lateral leg ulcer History of Wound: Patient bumped her left lateral leg in December on the kneeler at [employer]. She has been placing antibiotic ointment on it. It was causing her so much pain that she ended up going to the ED for evaluation. She was started on Bactrim and clindamycin. She followed up with [facility]. She has now come to our wound center because her granddaughter works here. Her b iggest concern is she had her left knee replaced 2 years ago. She does not want her knee replacement to get infected. Her wound care was Santyl covered by [facility]. n. Wound care - Moistened Promogram, covered with adaptic and topped with gauze. 3M 2 layer wraps for compression. Wound culture from 01/20/2022 was negative for bacterial growth. She had just completed an antibiotic from the ED before this culture. Arterial studies done at [facility] on 02/07/22, Right MARILY = 1.53, artificially elevated. Left MARILY 1.37, normal. PVR waveforms of bilateral legs normal at rest. Venous studies were done at [facility] on 02/25/22 of her left leg showed the no evidence of acute deep or superficial venous thrombosis of the left lower extremity and the right common femoral vein fully compresses and demonstrates normal venous flow. It was not an in depth study. 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 Reflux noted in right and left lower extremities. She made an appointment with a plastic surgeon a couple weeks ago and he recomme nds her seeing a vascular surgeon. She saw Dr. Burnett, a vascular surgeon at [facility] last week and she is scheduled to have a stent placed in April. Today she denies any fever, nausea or vomiting. She states she has a good appetite. Progress of Wound: She did not have 3M 2 layer wraps this week and she has increased edema. There still is the milton biofilm on the base of the ulcer. She states that she had increased pain this past week since she wasn't wearing her wraps. Objective Data Objective Data Vital Signs: Vital Signs Temp Pulse Resp BP 97 F L 84 16 146/74 H 04/01/22 14:39 04/01/22 14:39 04/01/22 14:39 04/01/22 14:39 Oxygen Delivery Method Room Air Weight: 165 lb 12.203 oz Body Mass Index (BMI) 25.9 Charges/Coding Procedures Integumentary 111xxx-113xx: [id number] Latrice subq tissue 20 sq cm/< Physical Exam Const alert and oriented x3 HEENT normocephalic Resp normal respiratory effort Cardio regular rate Skin Wound Narrative: Left lateral leg ulcer continues to be fibrous in the base of the ulcer and she has increased edema this week. Neuro CN's II-XII intact bilaterally Psych Appearance: well kempt Debridement Note Debridement Note Wound debrided: leg ulcer Laterality: Left Type of Debridement: Excisional debridement Anesthesia Used: 5% Lidocaine Gel Depth: Down to and including healthy tissue and in the subcutaneous layer Percentage of wound debrided: 100 Instrument Used: - (test [employer]ix aquasonic debrider used) Tissue Removed: Non viable tissue and slough Severity: Fat Layer Exposed Amount of bleeding with debridement: Mild Bleeding Controlled with: Pressure Patient tolerated procedure: Patient tolerated procedure well Post-Debridement Measurements and Additional Note: Post-Debridement Measurements/Treatment - Nurse 1 - General Ulcer Assessment Start: 03/10/22 10:22 Freq: Status: Active Protocol: GER Activity Type Activity Date Activity User E-Sign Co-Sign Detail Recorded Client Recorded Date Recorded By Document 03/10/22 10:24 DL [id number] 03/10/22 10:28 DL Document 03/14/22 10:23 AK [id number] 03/14/22 10:28 AK Document 03/25/22 13:46 KR [id number] 03/25/22 13:48 KR Document 04/01/22 14:39 [facility] [id number] 04/01/22 14:45 [facility] 03/10/22 03/14/22 03/25/22 10:24 10:23 13:46 - Today's Visit Information Type of service Follow-up Visit Follow-up Visit Follow-up Visit (Physician/PHARMACOLOGY TEACHER (Physician/PHARMACOLOGY TEACHER (Physician/PHARMACOLOGY TEACHER ) ) ) Arrival Mode Ambulatory Ambulatory Ambulatory Transfer Assistance Patient Identification Verified (Name & Yes Yes Yes ) Patient Requires Transmission-Based No Precautions Safety Precautions NA Height and Weight Body Mass Index (BMI) 25.9 25.9 25.9 BMI Classification Overweight Overweight Overweight Vital Signs Temperature (97.8 F-99.1 F) 97.5 F L 97.0 F L Temperature Source Temporal Temporal Pulse Rate (60-100) 76 87 Pulse Location Monitor Monitor Respiratory Rate (12-18) Respiratory rate source Oxygen Delivery Method Blood Pressure (90/60-120/80) 150/79 H 120/66 Blood Pressure Mean (mm Hg) 102 84 Source Monitor Monitor Position Sitting Sitting Blood Pressure Location Right Arm Left Arm History Since Last Visit- (Skip if this is Patient's initial visit) Have you changed medications since your No No No last visit? Any new allergies or adverse reactions No No No Had a fall/change in ADL's that may No No No increase risk of falls Signs or symptoms of abuse and/or No No No neglect since last visit Have you been in the hospital since your No No No last visit? Has dressing in place as prescribed Yes Yes Yes Has compression in place as prescribed Yes Yes Yes Has offloadiing in place as prescribed N/A N/A N/A Experienced any changes in pain level or No No No management Left Footwear Regular Shoe Regular Shoe Regular Shoe Right Footwear Regular Shoe Regular Shoe Regular Shoe Pain Scale: 0-10 Numeric Is Patient Pain Free? Yes No Yes WOUND -Description -Intensity -Duration (hours) -Pain Behavior -Alleviating Factors/Interventions 04/01/22 14:39 WC - Today's Visit Information Type of service Follow-up Visit (Physician/PHARMACOLOGY TEACHER ) Arrival Mode Ambulatory Transfer Assistance None Patient Identification Verified (Name & Yes ) Patient Requires Transmission-Based No Precautions Safety Precautions Height and Weight Body Mass Index (BMI) 25.9 BMI Classification Overweight Vital Signs Temperature (97.8 F-99.1 F) 97 F L Temperature Source Temporal Pulse Rate (60-100) 84 Pulse Location Monitor Respiratory Rate (12-18) 16 Respiratory rate source Observation Oxygen Delivery Method Room Air Blood Pressure (90/60-120/80) 146/74 H Blood Pressure Mean (mm Hg) 98 Source Monitor Position Sitting Blood Pressure Location Left Arm History Since Last Visit- (Skip if this is Patient's initial visit) Have you changed medications since your No last visit? Any new allergies or adverse reactions No Had a fall/change in ADL's that may No increase risk of falls Signs or symptoms of abuse and/or No neglect since last visit Have you been in the hospital since your No last visit? Has dressing in place as prescribed Yes Has compression in place as prescribed Yes Has offloadiing in place as prescribed N/A Experienced any changes in pain level or No management Left Footwear Regular Shoe Right Footwear Regular Shoe Pain Scale: 0-10 Numeric Is Patient Pain Free? No WOUND -Description Burning -Intensity 7 -Duration (hours) Chronic -Pain Behavior Withdrawal from Touch -Alleviating Factors/Interventions Turning/ Repositioning, Distraction, Will continue to monitor, Patient denies need for intervention, Emotional Support WC - Nurse 1 - General Ulcer Measurement Start: 03/10/22 10:22 Freq: Status: Active Protocol: Activity Type Activity Date Activity User E-Sign Co-Sign Detail Recorded Client Recorded Date Recorded By Document 03/10/22 10:24 DL [id number] 03/10/22 10:28 DL Document 03/25/22 13:46 KR [id number] 03/25/22 13:48 KR Document 04/01/22 14:39 [facility] [id number] 04/01/22 14:45 BMF 03/10/22 03/25/22 04/01/22 10:24 13:46 14:39 Wound Center Nurse 1 #1 L Lat LE -Combined with other wound No -Current Size (cm) - Length 2.1 1.9 2.4 -Current Size (cm) - Width 2 1.4 1.9 -Current Size (cm) - Depth 0.3 0.2 0.3 -Total Square Cm 4.2 2.66 4.56 -Date of Last Picture (Recall this 04/01/22 field) -Photo Taken Yes -Epithelialization None Present -Tunneling No -Undermining/Tunneling No -Circular Undermining No -Exudate Amt Medium Medium Medium -Exudate Type Yellow/Green Yellow/Green Serosanguineous -Wound Margin Distinct, Distinct, Distinct, Outline Outline Outline Attached Attached Attached -Granulation Amt None Present (0 Small (1-33%) None Present (0 %) %) -Granulation Quality [place] -Slough/Fibrin Yes -Necrosis Amt Large (67-100%) Large (67-100%) Large (67-100%) -Necrotic Tissue Type Adherent Slough Adherent Slough Adherent Slough -Texture (Janice-wound Skin Appearance) Assessed, Assessed, Scarring Scarring -Moisture (Janice-wound Skin Appearance) Assessed,Dry/ No Abnormality, Assessed Scaly Assessed -Color (Janice-wound Skin Appearance) No Abnormality, No Abnormality, Assessed, Assessed Assessed Erythema -Temperature (Janice-wound Skin No Abnormality No Abnormality No Abnormality Appearance) (Pt Warm) (Pt Warm) (Pt Warm) -Tenderness on Palpation (Janice-wound No No Yes Skin Appearance) -Ulcer Cleansing Rinsed/ Rinsed/ Rinsed/ Irrigated with Irrigated with Irrigated with Saline Saline Saline -Foul Odor after Cleansing No No No -Anesthetic Used 5% Lidocaine 4% Lidocaine 5% Lidocaine Gel Solution,5% Gel Lidocaine Gel Lower Limb Edema Present Yes Left Calf (cm) 39 Left Ankle (cm) 20 WC - Nurse 2 - General Ulcer CM Notes Start: 03/10/22 10:22 Freq: Status: Active Protocol: Activity Type Activity Date Activity User E-Sign Co-Sign Detail Recorded Client Recorded Date Recorded By Document 03/10/22 10:49 [id number] 03/10/22 10:50 Document 03/25/22 14:11 [id number] 03/25/22 14:24 Document 04/01/22 15:12 [id number] 04/01/22 15:13 03/10/22 03/25/22 04/01/22 10:49 14:11 15:12 Wound Center Nurse 2 #1 L Lat LE -Time 15:13 -Correct Patient No No Yes -Correct Side, Site, Position No No Yes -Correct Procedure No No Yes -Procedure Performed No No Yes -Type of Procedure Debridement -Clinical Debridement Subcutaneous -Tissue Removed Subcutaneous -Post Debridement (cm) - Length 2.5 -Post Debridement (cm) - Width 2.1 -Post Debridement (cm) - Depth 0.2 -Total Square (Post) (cm) 5.25 -Area of Debridement (cm) - Length 2.5 -Area of Debridement (cm) - Width 2.1 -Total Square (Area) (cm) 5.25 -Tunneling No No -Undermining/Tunneling No No -Circular Undermining No No -Wound/Ulcer Outcome Not Healed Not Healed Not Healed -Ulcer Cleansing Rinsed/ Irrigated with Saline -Foul Odor after Cleansing No -Bioengineered Tissue No -Bleeding Controlled with Pressure Pressure -Treatment Response Procedure Procedure Tolerated Well Tolerated Well -Offloading No -Debridement - Subq, 1st 20sq cm No No Yes Pain Scale: 0-10 Numeric Is Patient Pain Free? Yes Yes Yes WC - Nurse 3 - General Ulcer D/C NN Start: 03/10/22 10:22 Freq: Status: Active Protocol: Activity Type Activity Date Activity User E-Sign Co-Sign Detail Recorded Client Recorded Date Recorded By Document 03/10/22 11:11 KR [id number] 03/10/22 11:11 KR Document 03/14/22 10:23 AK [id number] 03/14/22 10:28 AK Document 03/19/22 07:56 PL [id number] 03/24/22 07:56 PL Document 03/25/22 14:42 [facility] [id number] 03/25/22 14:42 BMF Document 04/01/22 15:23 [facility] [id number] 04/01/22 15:24 BMF 03/10/22 03/14/22 03/19/22 11:11 10:23 07:56 Wound Care Nurse 3 #1 L Lat LE -Ulcer Cleansing Rinsed/ Rinsed/ Irrigated with Irrigated with Saline Saline -Foul Odor after Cleansing No -Negative Pressure Wound Therapy N/A -Primary Dressing Applied NonAdherent Contact Layer, Promogran -Other Dressing -Primary Dressing Covered/Secured with Dry Gauze, Dry Gauze Secured with Tape -Other Covering -Promogran 0 Left -Lotion applied to leg before No compression wrap -Multi-Layered Wrap Application Multi-Layer Multi-Layer Comp - Left ($) Comp - Left ($) -Tubular Bandage Double Layer -Size of Tubigrip Used Size D -Size D ($) 2 -Other own Treatment Response Pain Scale: 0-10 Numeric Is Patient Pain Free? Yes No Yes WC - Visit Discharge Discharge Condition Stable Ambulatory Status Ambulatory Transportation Private Auto Accompanied by eri 03/25/22 04/01/22 14:42 15:23 Wound Care Nurse 3 #1 L Lat LE -Ulcer Cleansing Rinsed/ Rinsed/ Irrigated with Irrigated with Saline Saline -Foul Odor after Cleansing No No -Negative Pressure Wound Therapy -Primary Dressing Applied Other NonAdherent Contact Layer, Promogran -Other Dressing SANTYL -Primary Dressing Covered/Secured with Dry Gauze & Dry Gauze Roll Gauze, Secured with Tape -Other Covering DRSG PER KR SWAGE TENDER -Promogran 1 Left -Lotion applied to leg before compression wrap -Multi-Layered Wrap Application Multi-Layer Comp - Left ($) -Tubular Bandage Double Layer -Size of Tubigrip Used Size D -Size D ($) 1 -Other Treatment Response Procedure Procedure Tolerated Well Tolerated Well Pain Scale: 0-10 Numeric Is Patient Pain Free? Yes Yes WC - Visit Discharge Discharge Condition Stable Stable Ambulatory Status Ambulatory Ambulatory Transportation Private Auto Private Auto Accompanied by Assessment/Plan Assessment/Plan (1) Ulcer of left lower extremity with fat layer exposed: CODE(S): L97.922 - Non-pressure chronic ulcer of unspecified part of left lower leg with fat layer exposed (2) Nerve pain: CODE(S): M79.2 - Neuralgia and neuritis, unspecified (3) Peripheral vascular disease of lower extremity with ulceration: CODE(S): I73.9 - Peripheral vascular disease, unspecified; L97.909 - Non- pressure chronic ulcer of unspecified part of unspecified lower leg with unspecified severity (4) History of total left knee replacement (TKR): CODE(S): Z96.652 - Presence of left artificial knee joint (5) Pain in wound: PLAN: Patient was seen and evaluated at the wound healing center today. She did allow me to debride her wound with the [employer] aquasonic debrider. Arterial studies done at [facility] on 02/07/22, Right MARILY = 1.53, artificially elevated. Left MARILY 1.37, normal. PVR waveforms of bilateral legs normal at rest. Venous studies done 02/25/22 which did not show much. 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 Reflux noted in right and left lower extremities. She had an appointment with a plastic surgeon, Dr. Card, Plastic Surgeon at [facility], for a consult for a surgical debridement a couple weeks ago and he recommends her seeing a vascular surgeon. She saw Dr. Burnett, a vascular surgeon at [facility], last week and she is scheduled to have a stent place in April. She made an appointment with dermatology later today for a skin check and to see if they will be able to close her ulcer. She has a history of basal cell skin cancer. I reinforced that seeing the vascular surgeon is very important to keep. Wound care - Moistened Promogran covered with adaptic and topped with gauze. 3M 2 layer wraps placed. Wound culture from 01/20/2022 was negative for bacterial growth. She had just completed an antibiotic from the ED before this culture. She should avoid standing for long periods of time. It is okay for her to walk for her activity. Encouraged increase protein intake and increase Vitamin C intake to 1000mg/day to help with wound healing. Patient verbalizes frustration that she is not healed. Reinforced that her ulcer is on her her lower leg, it takes longer to heal. Patient and her family have hired a caregiver to help her at night 5 nights a week to help care for her and to help decrease some of her stress. Patient is in much better spirits this week. Follow up in one week.
== END 2022-04-08 23:59 | disposition home or self-care (01) ==
LOC: WC 14:30
PROVIDERS: Visit Provider Nurse Practitioner Family
DX: L97.922 Non-pressure chronic ulcer of unspecified part of left lower leg with fat layer exposed (principal); I73.9 Peripheral vascular disease, unspecified; G62.9 Polyneuropathy, unspecified; M79.2 Neuralgia and neuritis, unspecified; Z96.652 Presence of left artificial knee joint
CPT/HCPCS: 11042; 29581; 99213; G0463